=== PATIENT | male | born 1960 | race Caucasian/White ===

== ENCOUNTER → 2017-10-20 07:55 | Outpatient (CLI) | payer BC, SELFPAY ==
[2017-10-20 08:38] LABS: AST(SGOT) 25 U/L (15-37); Alanine Aminotransfer ALT/SGPT 31 U/L (16-61); Albumin, Serum 3.7 g/dL (3.2-5.0); Alkaline Phosphatase 56 U/L (45-117); Bilirubin, Direct 0.13 mg/dL (0.00-0.30); Cholesterol 209 mg/dL (200); Globulin 3.5 g/dL (2.2-4.2); High Density Lipoprotein 62 mg/dL; Protein, Total 7.2 g/dL (6.4-8.2); Triglycerides 144 mg/dL; Very Low Density Lipoprotein 29 mg/dL (5-40)
== END ==
PROVIDERS: Family Provider Family Medicine; PCP Family Medicine; Visit Provider Internal Medicine Cardiovascular Disease
DX: E78.5 Hyperlipidemia, unspecified (principal); Z79.899 Other long term (current) drug therapy
CPT/HCPCS: 36415; 80061; 80076

== ENCOUNTER → 2018-04-27 08:53 | Outpatient (CLI) | payer BC, SELFPAY ==
[2018-04-27 11:19] LABS: Albumin, Serum 3.7 g/dL (3.2-5.0)
[2018-04-27 11:20] LABS: AST(SGOT) 17 U/L (15-37); Alanine Aminotransfer ALT/SGPT 24 U/L (16-61); Alkaline Phosphatase 48 U/L (45-117); Bilirubin, Direct 0.14 mg/dL (0.00-0.30); Cholesterol 201 mg/dL (200); Globulin 3.3 g/dL (2.2-4.2); High Density Lipoprotein 53 mg/dL; Triglycerides 87 mg/dL; Very Low Density Lipoprotein 17 mg/dL (5-40)
== END ==
PROVIDERS: Family Provider Family Medicine; PCP Family Medicine; Referring Provider Internal Medicine Cardiovascular Disease; Visit Provider Internal Medicine Cardiovascular Disease
DX: E78.5 Hyperlipidemia, unspecified (principal)
CPT/HCPCS: 36415; 80061; 80076

== ENCOUNTER → 2018-10-26 07:46 | Outpatient (CLI) | payer BC, SELFPAY ==
[2018-04-28 14:02] VITALS: BMI 22.8
[2018-10-26 08:59] LABS: AST(SGOT) 18 U/L (15-37); Alanine Aminotransfer ALT/SGPT 20 U/L (16-61); Albumin, Serum 3.8 g/dL (3.2-5.0); Alkaline Phosphatase 56 U/L (45-117); Cholesterol 195 mg/dL (200); Globulin 3.4 g/dL (2.2-4.2); High Density Lipoprotein 48 mg/dL; Protein, Total 7.2 g/dL (6.4-8.2); Triglycerides 120 mg/dL; Very Low Density Lipoprotein 24 mg/dL (5-40)
== END ==
PROVIDERS: Family Provider Family Medicine; PCP Family Medicine; Referring Provider Internal Medicine Cardiovascular Disease; Visit Provider Internal Medicine Cardiovascular Disease
DX: E78.5 Hyperlipidemia, unspecified (principal)
CPT/HCPCS: 36415; 80061; 80076

== ENCOUNTER 2018-11-10 12:54 | Emergency (ER) | payer BC, SELFPAY ==
[2018-10-27 11:20] VITALS: BMI 23.1
[2018-11-10 12:54] VITALS: BP 152/97; PULSE 93; RESP 16; TEMP 36.8; O2SAT 95; BMI 22.6
--- NOTE | 2018-11-10 13:22 | CT_ITS ---
STUDY: CT ABDOMEN AND PELVIS WITHOUT CONTRAST REASON FOR EXAM: Male, 58 years old. One day history of diffuse abdominal pain. RADIATION DOSAGE (If Supplied By Facility): CTDIvol = ( 10.72 ) mGy, DLP = ( 547.16 ) mGycm TECHNIQUE: Transaxial images were obtained from the dome of the diaphragm to the symphysis pubis without oral contrast, and without intravenous contrast. Sagittal and coronal images were reconstructed. Individualized dose optimization techniques were used for this CT. COMPARISON: Comparison is made with prior study dated February 11, 2012. FINDINGS: The visualized lung bases are unremarkable. Coronary artery calcification. Prior CABG. Normal liver. Normal gallbladder and extrahepatic biliary system. Normal spleen. Normal pancreas. Normal bilateral adrenal glands. Normal right kidney. Normal left kidney. Normal visualized stomach. Normal small intestine. Normal colon. The appendix is visualized and appears normal. And measures 8 mm. Gas is seen within the appendix. There is scattered atherosclerotic calcification of the abdominal aorta, without a demonstrated aneurysm. Normal inferior vena cava. There is borderline retroperitoneal lymphadenopathy with enlarged nodes no greater than 10mm in the short axis diameter. Normal urinary bladder. There is enlargement of the prostate gland. It measures 4 cm x 4.6 cm. There is a small umbilical hernia containing fat. Mild loss of height of the superior endplate of the L4 vertebrae. CT/Abdomen/Pelvis without Cont IMPRESSION: No acute abnormality is seen. Electronically Signed: Rafal Bridges, at 14:25 EDT , Service support ,
--- NOTE | 2018-11-10 13:23 | EKG12_ITS ---
Test Reason : ABD PAIN Blood Pressure : / mmHG Vent. Rate : 066 BPM Atrial Rate : 066 BPM P-R Int : 144 ms QRS Dur : 088 ms QT Int : 396 ms P-R-T Axes : 054 049 070 degrees QTc Int : 415 ms Normal sinus rhythm Normal ECG Confirmed by SHARMAINE JAFFE, LILLIANA ([id number]), school photograph editor SANYA BARONE ([id number]) on 11/15/2018 1:01:33 PM Referred By: ES Confirmed By:LILLIANA SCHMID MD
[2018-11-10 13:54] LABS: Absolute Lymphocyte Count 1.81 X10^3/ul (0.83-4.51); Absolute Neutrophil Count 8.7 X10^3/uL (2.0-7.7); Basophil# 0.03 X10^3/uL; Basophil% 0.3 % (0-1); Eosinophil# 0.08 X10^3/uL; Eosinophils% 0.7 % (0-5); Hematocrit 49.6 % (40-54); Hemoglobin 17.4 g/dl (13.0-16.5); Lymphocyte # 1.81 X10^3/ul (4.0); Lymphocyte % 16.2 % (19-41); Mean Corp Hgb Conc 35.1 g/gl (32-36); Mean Corpuscular Hgb 30.6 pg (27.0-32.0); Mean Corpuscular Volume 87.3 fL (80-94); Mean Platelet Vol. 10.7 fl (6.2-12.0); Monocyte# 0.57 X10^3/uL; Monocyte% 5.1 % (0-10); Neutrophil # 8.68 X10^3/uL (2.7-7.7); Neutrophil % 77.5 % (47-70); POSITIVE COUNT NO; POSITIVE DIFFERENTIAL NO; POSITIVE MORPHOLOGY NO; Platelet Count 236 K/mm3 (150-450); RBC Distribution Width SD 38.3 fl (35.1-43.9); Red Blood Count 5.68 M/mm3 (4.6-6.2); White Blood Count 11.2 K/mm3 (4.4-11.0)
[2018-11-10 14:16] LABS: BUN 12 mg/dL (7-18); Creatinine, Serum 0.97 mg/dL (0.70-1.30); EST Glomerular Filtration Rate 84 mL/min (>60); Estimated Creatinine Clearance 87.85 ml/min; Glucose 101 mg/dL (74-106)
[2018-11-10 14:17] LABS: AST(SGOT) 20 U/L (15-37); Alanine Aminotransfer ALT/SGPT 25 U/L (16-61); Albumin, Serum 3.8 g/dL (3.2-5.0); Alkaline Phosphatase 63 U/L (45-117); Anion Gap 10 (5-15); BUN/Creat Ratio 12.4 RATIO (10-20); Chloride 102 mmol/L (98-107); Est Glom Filt Rate - Afr Amer 102 mL/min (>60); Globulin 3.8 g/dL (2.2-4.2); Lipase 83 U/L (73-393); Potassium 3.7 mmol/L (3.5-5.1); Protein, Total 7.6 g/dL (6.4-8.2); Sodium Level 139 mmol/L (136-145)
--- NOTE | 2018-11-10 14:22 | ED.VISSUMM ---
- ER Visit Summary Date of Service: 11/10/18 Chief Complaint: Abdominal pain History of Present Illness: The patient is a 58 M who presents with abdominal pain that began yesterday. Patient states he was started on amlodipine yesterday for his blood pressure. Patient states his pain began approximately 3 hours after taking the amlodipine. Patient states the pain is diffuse across his abdomen. Patient states the pain radiates into his back and up into his chest. Patient states the pain in his chest feels different than his pain from his coronary artery disease. Patient is not concerned that this is from coronary artery disease. Patient denies any nausea or vomiting. Patient denies any melena or hematochezia. Patient denies any dysuria or hematuria. Physical Examination: Vital signs are stable. Patient is afebrile. Patient is in no acute distress. Oral mucosa is pink and moist. Neck is supple. Trachea is midline. There is no JVD noted. Heart was regular rate and rhythm. Lungs are clear and equal bilateral. Abdomen is soft. Bowel sounds are normal. There is mild diffuse tenderness. There is no guarding noted. Skin is warm dry. Cranial nerves II through XII are intact. There are no focal motor or sensory deficits noted. The remaining physical exam is within normal limits. Test Results: CBC shows slight leukocytosis of 11.2. Comprehensive metabolic profile and urinalysis were normal. Troponin was normal. CT scan of the abdomen pelvis was obtained and was normal. Emergency Department Course and Treatment: Patient was advised of his lab and x-ray results. Case was discussed with Dr. Jackson who prescribed his amlodipine for him. He will follow-up with the patient as an outpatient. Patient understood and was agreeable with the plan. All questions were answered. Disposition: Discharge home Impression: Abdominal pain This note was generated with [employer] dictation software. It may contain incorrect words, spelling, and punctuation that were not noted in review of the chart prior to signing ED Disposition - Plan for ED Patient: Disposition: Home or Assisted Living Diagnosis: Abdominal pain Instructions: ED Abdominal Pain Unkn Cause Referrals: Angel Barros MD [Primary Care Provider] - Blake Jackson MD [STAFF PHYSICIAN] - 3-5 Days
[2018-11-10 14:26] LABS: Bacteria 0 SEEN /hpf (None Seen); Mucous, Urine 0 SEEN /hpf (<or=2+); Squamous Epithelial Cells - UA 0 SEEN /hpf (0-5); White Blood Cells 0 SEEN /hpf (0-5)
--- NOTE | 2018-11-10 14:27 | ED.DCSUM_ITS ---
- ER Visit Summary Date of Service: 11/10/18 Chief Complaint: Abdominal pain History of Present Illness: The patient is a 58 M who presents with abdominal pain that began yesterday. Patient states he was started on amlodipine yesterday for his blood pressure. Patient states his pain began approximately 3 hours after taking the amlodipine. Patient states the pain is diffuse across his abdomen. Patient states the pain radiates into his back and up into his chest. Patient states the pain in his chest feels different than his pain from his coronary artery disease. Patient is not concerned that this is from coronary artery disease. Patient denies any nausea or vomiting. Patient denies any melena or hematochezia. Patient denies any dysuria or hematuria. Physical Examination: Vital signs are stable. Patient is afebrile. Patient is in no acute distress. Oral mucosa is pink and moist. Neck is supple. Trachea is midline. There is no JVD noted. Heart was regular rate and rhythm. Lungs are clear and equal bilateral. Abdomen is soft. Bowel sounds are normal. Ther e is mild diffuse tenderness. There is no guarding noted. Skin is warm dry. Cranial nerves II through XII are intact. There are no focal motor or sensory deficits noted. The remaining physical exam is within normal limits. Test Results: CBC shows slight leukocytosis of 11.2. Comprehensive metabolic profile and urinalysis were normal. Troponin was normal. CT scan of the abdomen pelvis was obtained and was normal. Emergency Department Course and Treatment: Patient was advised of his lab and x- ray results. Case was discussed with Dr. Jackson who prescribed his amlodipine for him. He will follow-up with the patient as an outpatient. Patient understood and was agreeable with the plan. All questions were answered. Disposition: Discharge home Impression: Abdominal pain This note was generated with [employer] dictation software. It may contain incorrect words, spelling, and punctuation that were not noted in review of the chart prior to signing ED Disposition - Plan for ED Patient: Disposition: Home or Assisted Living Diagnosis: Abdominal pain Instructions: ED Abdominal Pain Unkn Cause Referrals: Angel Barros MD [Primary Care Provider] - Blake Jackson MD [STAFF PHYSICIAN] - 3-5 Days
[2018-11-10 14:32] LABS: Color, Urine Yellow (Yellow); Glucose, Dipstick Normal (Normal); Ketone-Dipstick Negative (Negative); Leukocyte Esterase-Dipstick Negative /ul (Negative); Nitrite-Dipstick Negative (Negative); Occult Blood-Urine 25 /ul (Negative); Protein-Dipstick Negative (Negative); Specific Gravity, Urine 1.015 (1.002-1.030); Urine Bilirubin Dipstick Negative (Negative); Urine Clarity Clear (Clear); Urine Urobilinogen Normal (Normal); Urine pH 6.5 (5.0 - 8.0)
[2018-11-10 14:38] LABS: Red Blood Cells-Urine 0-5 SEEN /hpf (0-5)
[2018-11-10 15:29] VITALS: BP 172/104; PULSE 62; RESP 16; O2SAT 97
--- NOTE | 2018-11-10 15:33 | ED.RN ---
DR DAHL AWARE OF HTN. NNO.
== END 2018-11-10 15:37 | disposition home or self-care (01) ==
PROVIDERS: Emergency Provider Emergency Medicine; Family Provider Family Medicine; PCP Family Medicine
DX: R10.84 Generalized abdominal pain (principal); I25.10 Atherosclerotic heart disease of native coronary artery without angina pectoris; I10 Essential (primary) hypertension; Z79.82 Long term (current) use of aspirin; Z79.899 Other long term (current) drug therapy
CPT/HCPCS: 74176; 80053; 81001; 83690; 84484; 85025; 93005; 99283; A4216

== ENCOUNTER → 2018-11-29 | Outpatient (CLI) | payer BC, SELFPAY ==
[2018-11-10 12:54] VITALS: BMI 22.6
[2018-11-29 15:08] LABS: PSA,Total - Annual Screen 3.19 ng/mL (0.00-4.00)
== END | disposition home or self-care (01) ==
LOC: LAB.FUTURE 14:35
PROVIDERS: Family Provider Family Medicine; PCP Family Medicine; Referring Provider Nurse Practitioner Adult Health; Visit Provider Nurse Practitioner Adult Health
DX: Z12.5 Encounter for screening for malignant neoplasm of prostate (principal)
CPT/HCPCS: 36415; 84153; G0103

== ENCOUNTER → 2019-05-18 08:51 | Outpatient (CLI) | payer BC, SELFPAY ==
[2019-05-18 11:11] LABS: AST(SGOT) 14 U/L (15-37); Alanine Aminotransfer ALT/SGPT 16 U/L (16-61); Albumin, Serum 3.7 g/dL (3.2-5.0); Alkaline Phosphatase 51 U/L (45-117); Bilirubin, Direct 0.15 mg/dL (0.00-0.30); Cholesterol 197 mg/dL (200); Globulin 3.2 g/dL (2.2-4.2); High Density Lipoprotein 56 mg/dL; Protein, Total 6.9 g/dL (6.4-8.2); Triglycerides 106 mg/dL; Very Low Density Lipoprotein 21 mg/dL (5-40)
== END ==
PROVIDERS: Family Provider Family Medicine; PCP Family Medicine; Referring Provider Internal Medicine Cardiovascular Disease; Visit Provider Internal Medicine Cardiovascular Disease
DX: E78.5 Hyperlipidemia, unspecified (principal)
CPT/HCPCS: 36415; 80061; 80076

== ENCOUNTER → 2019-11-23 | Outpatient (CLI) | payer OTHER, SELFPAY ==
[2019-05-18 14:52] VITALS: BMI 23.0
[2019-11-23 09:40] LABS: Cholesterol 224 mg/dL (200); High Density Lipoprotein 54 mg/dL; PSA,Total - Annual Screen 3.32 ng/mL (0.00-4.00); Triglycerides 109 mg/dL; Very Low Density Lipoprotein 22 mg/dL (5-40)
== END | disposition home or self-care (01) ==
LOC: LAB.FUTURE 08:44 → LAB 08:46
PROVIDERS: PCP Family Medicine; Referring Provider Internal Medicine Cardiovascular Disease; Visit Provider Urology
DX: E78.00 Pure hypercholesterolemia, unspecified (principal); Z12.5 Encounter for screening for malignant neoplasm of prostate
CPT/HCPCS: 80061; 84153; G0103

== ENCOUNTER → 2020-08-22 07:56 | Outpatient (CLI) | payer OTHER, SELFPAY ==
[2019-11-23 13:00] VITALS: BMI 22.8
[2020-08-22 09:08] LABS: AST(SGOT) 21 U/L (15-37); Alanine Aminotransfer ALT/SGPT 25 U/L (16-61); Albumin, Serum 3.8 g/dL (3.2-5.0); Alkaline Phosphatase 55 U/L (45-117); Bilirubin, Direct 0.18 mg/dL (0.00-0.30); Cholesterol 201 mg/dL (200); Globulin 3.3 g/dL (2.2-4.2); High Density Lipoprotein 61 mg/dL; Protein, Total 7.1 g/dL (6.4-8.2); Triglycerides 123 mg/dL; Very Low Density Lipoprotein 25 mg/dL (5-40)
== END ==
PROVIDERS: PCP Family Medicine; Referring Provider Nurse Practitioner Family; Visit Provider Nurse Practitioner Family
DX: E78.5 Hyperlipidemia, unspecified (principal)
CPT/HCPCS: 36415; 80061; 80076

== ENCOUNTER → 2021-02-21 09:36 | Outpatient (CLI) | payer OTHER, SELFPAY ==
[2021-02-21 10:43] LABS: AST(SGOT) 17 U/L (15-37); Alanine Aminotransfer ALT/SGPT 29 U/L (16-61); Albumin, Serum 3.6 g/dL (3.2-5.0); Alkaline Phosphatase 64 U/L (45-117); Anion Gap 6 (5-15); BUN 14 mg/dL (7-18); BUN/Creat Ratio 16.1 RATIO (10-20); Bilirubin, Direct 0.18 mg/dL (0.00-0.30); Calcium,Total 8.6 mg/dL (8.5-10.1); Chloride 106 mmol/L (98-107); Cholesterol 228 mg/dL (200); Creatinine, Serum 0.87 mg/dL (0.70-1.30); EST Glomerular Filtration Rate 95 mL/min (>60); Est Glom Filt Rate - Afr Amer 115 mL/min (>60); Globulin 3.5 g/dL (2.2-4.2); Glucose 98 mg/dL (74-106); High Density Lipoprotein 70 mg/dL; Protein, Total 7.1 g/dL (6.4-8.2); Sodium Level 138 mmol/L (136-145); Triglycerides 67 mg/dL; Very Low Density Lipoprotein 13 mg/dL (5-40)
== END ==
PROVIDERS: PCP Family Medicine; Referring Provider Internal Medicine Cardiovascular Disease; Visit Provider Internal Medicine Cardiovascular Disease
DX: E78.5 Hyperlipidemia, unspecified (principal); I25.810 Atherosclerosis of coronary artery bypass graft(s) without angina pectoris; R00.2 Palpitations; Z95.1 Presence of aortocoronary bypass graft; Z95.5 Presence of coronary angioplasty implant and graft
CPT/HCPCS: 36415; 80048; 80061; 80076

== ENCOUNTER 2021-08-29 08:50 | Outpatient (CLI) | payer OTHER, SELFPAY ==
[2021-08-29 09:54] LABS: Cholesterol 253 mg/dL (200); High Density Lipoprotein 63 mg/dL; Triglycerides 91 mg/dL; Very Low Density Lipoprotein 18 mg/dL (5-40)
== END 2021-08-29 23:59 | disposition home or self-care (01) ==
LOC: LAB 08:52
PROVIDERS: PCP Family Medicine; Visit Provider Internal Medicine Cardiovascular Disease
DX: E78.00 Pure hypercholesterolemia, unspecified (principal)
CPT/HCPCS: 36415; 80061

== ENCOUNTER → 2023-10-22 | Outpatient (CLI) | payer OTHER, SELFPAY ==
[2023-10-22 08:32] LABS: Absolute Lymphocyte Count 1.75 X10^3/uL (0.83-4.51); Absolute Neutrophil Count 4.2 X10^3/uL (2.0-7.7); Basophil# 0.08 X10^3/uL; Basophil% 1.2 % (0-1); Hematocrit 50.7 % (40-54); Hemoglobin 16.9 g/dL (13.0-16.5); Lymphocyte # 1.75 X10^3/ul (0.83-4.51); Lymphocyte % 26.2 % (19-41); Mean Corp Hgb Conc 33.3 g/dL (32-36); Mean Corpuscular Hgb 30.8 pg (27.0-32.0); Mean Corpuscular Volume 92.5 fL (80-94); Monocyte# 0.47 X10^3/uL; NRBC Flagged by Analyzer 0 % (0-5); Neutrophil # 4.15 X10^3/uL (2.7-7.7); Neutrophil % 62.3 % (47-70); Platelet Count 230 K/mm3 (150-450); RBC Distribution Width CV 11.9 % (11.6-14.6); RBC Distribution Width SD 40.5 fl (35.1-43.9); Red Blood Count 5.48 M/mm3 (4.6-6.2); White Blood Count 6.7 K/mm3 (4.4-11.0)
[2023-10-22 09:24] LABS: ALB/GLOB Ratio 1.1 RATIO (0.9-2.4); AST(SGOT) 19 U/L (15-37); Alanine Aminotransfer ALT/SGPT 19 U/L (16-61); Albumin, Serum 3.7 g/dL (3.2-5.0); Alkaline Phosphatase 45 U/L (45-117); Anion Gap 4 (5-15); BUN 18 mg/dL (7-18); BUN/Creat Ratio 18.2 RATIO (10-20); Chloride 107 mmol/L (98-107); Cholesterol 243 mg/dL (200); Creatinine, Serum 0.99 mg/dL (0.70-1.30); EST Glomerular Filtration Rate 81 mL/min (>60); Est Glom Filt Rate - Afr Amer 98 mL/min (>60); Globulin 3.4 g/dL (2.2-4.2); Glucose 97 mg/dL (74-106); High Density Lipoprotein 51 mg/dL; Potassium 4.3 mmol/L (3.5-5.1); Protein, Total 7.1 g/dL (6.4-8.2); Sodium Level 138 mmol/L (136-145); Triglycerides 92 mg/dL; Very Low Density Lipoprotein 18 mg/dL (5-40)
== END | disposition home or self-care (01) ==
LOC: LAB 08:17
PROVIDERS: PCP Family Medicine; Referring Provider Internal Medicine Cardiovascular Disease; Visit Provider Internal Medicine Cardiovascular Disease
DX: E78.5 Hyperlipidemia, unspecified (principal); I25.810 Atherosclerosis of coronary artery bypass graft(s) without angina pectoris; I10 Essential (primary) hypertension; R00.2 Palpitations; Z95.1 Presence of aortocoronary bypass graft; Z95.5 Presence of coronary angioplasty implant and graft
CPT/HCPCS: 36415; 80053; 80061; 85025

== ENCOUNTER → 2025-03-01 | Outpatient (CLI) | payer MEDICARE, OTHER, SELFPAY ==
--- OUTSIDE RECORDS SUMMARY | 2025-03-01 06:38 | XMS RPT_ITS | CCD ---
Author Organization [facility] Care Team Providers Care Development Technical Lead Name Role Phone Blake Jackson MD Unavailable JEFFREY VILLA Attending Unavailable JEFFREY VILLA Primary Care Unavailable JEFFREY VILLA Admitting Unavailable Dr. Angel Strong Primary Care Provider Dr. Angel Strong Referring Provider Dr. Blake Jackson Attending Provider [phone] Fiorella JAFFE, Jackie Ascencio Primary Care Provider Jackie Strong MD Primary Care Provider Marily PART TIME.CASINO FLOOR SUPERVISOR, Sindhu Unavailable Fiorella JAFFE, Dr. Ortiz Primary Care Provider [phone] Fiorella JAFFE, Dr. Ortiz Referring Provider Warren JAFFE, Dr. Kearney Attending Provider JACKIE STRONG Attending Unavailable JACKIE STRONG Primary Care Unavailable JACKIE STRONG Referring Unavailable JACKIE STRONG Primary Care Unavailable Caio Kelley Attending Unavailable Angel Strong Referring Unavailable Angel Strong Primary Care Unavailable [employer], Dru Tubbs Attending Unavailable Angel Strong Referring Unavailable Angel Strong Primary Care Unavailable Caio Kelley Referring Unavailable Caio Kelley Attending Unavailable Angel Strong Primary Care Unavailable Allergies Allergy Classification Reported Allergen(s) Allergy Type Date of Onset Reaction(s) Facility (16 sources) amoxicillin; Translations: [AMOXICILLIN] Drug Allergy 5 tongue blisters, Unknown [facility] Work Phone: (2 sources) penicillin Drug Allergy 1 bumps on tongue [facility] Work Phone: (2 sources) amLODIPine Drug Allergy 2 stomach pain [facility] (2 sources) Losartan Drug Allergy 2 respiratory symptoms, Nasal congestion, GI symptoms [facility] (2 sources) Penicillin V Drug Allergy 2 unknown [facility] (12 sources) pantoprazole; Translations: [PANTOPRAZOLE SODIUM] Drug Allergy 2 Intolerance [facility] (1 source) Lisinopril Drug Allergy 5 Intestinal issues,cramps, gas [facility] (1 source) amLODIPine Drug Allergy 5 [facility] (1 source) Lisinopril Drug Allergy 5 [facility] (1 source) Losartan Drug Allergy 5 [facility] (1 source) Penicillin Drug Allergy 5 [facility] Medications Current Medications Medication Drug Class(es) Dates Sig (Normalized) Sig (Original) aspirin 81 mg chewable tablet (17 sources) Nonsteroidal Anti-inflammatory Drug Start: 11-20-2015 take 81 mg by mouth once daily Aspirin Active 81 MG PO DAILY@0800 November 20, 2015 12:48pm Start: 06-23-2011 take 1 tablet by benigno th once daily ASPIRIN EC 81 MG TBEC One tablet by mouth daily ASPIRIN [id number] Raquel Crawford RN Start: 12-30-2010 take 1 tablet by benigno th once daily Aspirin 81 mg ORAL Tab Take 1 tablet by mouth once daily. 30 tablet 11 12/30/2010 Active Start: 12-24-2010 take 1 tablet by benigno th once daily ASPIRIN 325 MG TABS One tablet by mouth daily ASPIRIN [id number] Gilda Johns Comment on above: Take 1 tablet by benigno th once daily. chlorthalidone 25 mg oral tablet (4 sources) Thiazide-like Diuretic Start: 025 take 1 tablet by mouth once daily Chlorthalidone 25 mg tablet Active 25 mg PO daily 30 0 February 06, 2025 12:00am hydroCHLOROthiazide 12.5 mg oral capsule (7 sources) Thiazide Diuretic Start: 022 End: take 12.5 mg by mouth once daily Hydrochlorothiazide Active 12.5 MG PO DAILY August 29, 2021 1:55pm Start: 08-22-2020 End: 2022 hydroCHLOROthiazide (HYDRODI URIL, ESIDRIX) 12.5 mg tablet Take by mouth. 0 08/22/2020 2022 Discontinued Start: 08-22-2020 End: 02-21-2021 take 0.5 tablet by mouth once daily Hydrochlorothiazide Discontinued 12.5 MG PO DAILY August 22, 2020 5:33pm February 21, 2021 4:00pm 1/2 tablet by mouth daily Comment on above: Take by mouth. lisinopril 10 mg oral tablet (20 sources) Angiotensin Converting Enzyme Inhibitor Start: 02-06-2025 take 5 mg by mouth twice daily Lisinopril 10 mg tablet Active 5 mg PO TWICE A DAY February 06, 2025 2:23pm Start: 12-27-2024 End: 02-06-2025 take 1 tablet by mouth twice daily Lisinopril 10 mg tablet Discontinued 10 mg PO TWICE A DAY 60 December 27, 2024 12:00am February 06, 2025 2:24pm Start: 04-20-2024 End: 04-20-2024 take 5 mg by mouth twice daily Lisinopril 10 mg tablet Discontinued 5 mg PO TWICE A DAY April 20, 2024 2:09pm April 20, 2024 2:28pm Start: 04-13-2024 take 1 tablet by benigno th every twelve hours lisinopril (ZESTRIL) 10 mg tablet Take 1 tablet by mouth every 12 hours. 04/13/2024 Active Start: 01-18-2024 End: 04-20-2024 take 1 tablet by mouth once daily Lisinopril 10 mg tablet Discontinued 10 mg PO daily January 18, 2024 1:11pm April 20, 2024 2:10pm Start: 06-03-2023 End: 01-18-2024 take 1 tablet by mouth twice daily Lisinopril 10 mg tablet Discontinued 10 mg PO TWICE A DAY 60 June 03, 2023 1:00am January 18, 2024 1:12pm Start: 08-29-2021 take 5 mg by mouth once daily Lisinopril Active 5 MG PO DAILY August 29, 2021 1:32pm Start: 08-29-2021 End: 01-15-2023 take 5 mg by mouth once daily as needed Lisinopril 10 mg tablet Discontinued 5 mg PO DAILY as needed August 29, 2021 12:00am January 15, 2023 2:30pm Start: 11-23-2019 End: 07-10-2020 take 5 mg by mouth once daily Lisinopril Discontinued 5 MG PO DAILY 45 November 23, 2019 1:13pm July 10, 2020 2:25pm Start: 11-23-2019 End: 11-23-2019 take 5 mg by mouth once daily Lisinopril Discontinued 5 MG PO DAILY November 23, 2019 1:01pm November 23, 2019 1:13pm Start: 11-23-2019 End: 07-10-2020 take 5 mg by mouth once daily Lisinopril 10 mg tablet Discontinued 5 mg PO DAILY 45 3 November 23, 2019 12:00am July 10, 2020 2:25pm Start: 11-15-2018 End: 2022 take 1 tablet by mouth once daily Lisinopril 10 mg tablet Discontinued 10 mg PO DAILY 30 March 21, 2019 1:11pm May 18, 2019 4:14pm Comment on above: Take 10 mg by mouth once daily. nitroglycerin 0.4 mg sublingual tablet (20 sources) Nitrate Vasodilator Start: 11-18-19 End: 06-03-20 nitroglycerin sublingual 0.4 mg SL tablet Dissolve 1 tablet under the tongue every 5 minutes as needed. 2 Bottle of 25 4 02/29/2012 Active Comment on above: Dissolve 1 tablet un dorina the tongue every 5 minutes as needed. rosuvastatin calcium 5 mg oral tablet (20 sources) HMG-CoA Reductase Inhibitor Start: 10-23-19 24 End: 01-18-20 24 take 1 tablet by mouth once daily Rosuvastatin 5 mg tablet Active 5 mg PO DAILY January 18, 2024 1:11pm Has not started Start: 10-27-2018 End: 05-18-2019 take 1 tablet by mouth every other day Rosuvastatin (Crestor) 5 mg tablet Discontinued 5 MG PO .qod October 27, 2018 11:57am May 18, 2019 3:53pm Start: 10-26-2017 End: 01-15-2023 take 1 tablet by mouth once daily Rosuvastatin (Crestor) 5 mg tablet Discontinued 5 mg PO DAILY 14 05September 20, 2021 9:38am May 21, 2022 2:46pm Start: 10-13-2017 End: 10-21-2017 take 2.5 mg by mouth once daily Rosuvastatin (Crestor) 5 mg tablet Discontinued 2.5 MG PO daily October 13, 2017 1:11pm October 21, 2017 2:19pm Start: 11-29-2015 End: 06-29-2017 take 1 tablet by mouth at bedtime Rosuvastatin 5 MG tablet Discontinued 5 mg PO AT BEDTIME December 10, 2015 12:00am June 29, 2017 3:50pm Start: 12-10-2012 End: 04-13-2013 take 1 tablet by mouth once daily CRESTOR 5 MG TABS One tablet by mouth daily ROSUVASTATIN CALCIUM [id number] Blake Jackson MD Comment on above: Take 1 tablet by benigno th once daily. sildenafil 20 mg oral tablet (12 sources) Phosphodiesterase 5 Inhibitor Start: 03-10-2019 End: 2022 sildenafil (REVATIO) 20 mg tablet Indications: ED (erectile dysfunction) of organic origin Take 1-5 tablets by mouth 45-60 mg prior to anticipated intercourse. 90 tablet 2022 Active Comment on above: Take 1-5 tablets by mouth 45-60 mg prior to anticipated intercourse. Completed/Discontinued Medications Medication Drug Class(es) Dates Sig (Normalized) Sig (Original) amLODIPine 2.5 mg oral tablet (6 sources) Dihydropyridine Calcium Channel Sonia Start: 11-09-2018 End: 11-15-2018 take 1 tablet by mouth once daily Amlodipine 2.5 mg tablet Discontinued 2.5 mg PO DAILY 14 05November 09, 2018 2:41pm November 15, 2018 4:16pm Start: 10-21-2017 End: 10-27-2018 Amlodipine Discontinued 2.5 MG PO .PRN October 21, 2017 2:51pm October 27, 2018 11:52am atorvastatin 40 mg oral tablet (2 sources) HMG-CoA Reductase Inhibitor Start: 01-24-2011 End: 05-16-2011 take 1 tablet by mouth once daily LIPITOR 40 MG TABS One tablet by mouth daily ATORVASTATIN CALCIUM [id number] Liz Pitts RN carvedilol 3.125 mg oral tablet (2 sources) alpha-Adrenergic Sonia, beta-Adrenergic Sonia Start: 10-21-2023 End: 01-18-2024 take 2 tablets by mouth twice daily at mealtime Carvedilol (Coreg) 3.125 mg tablet Discontinued 6.25 mg PO TWICE A DAY 30 October 21, 2023 3:53pm January 18, 2024 1:09pm must administer with a meal/food Start: 10-16-2023 End: 10-21-2023 take 1 tablet by mouth twice daily at mealtime Carvedilol (Coreg) 3.125 mg tablet Discontinued 3.125 mg PO TWICE A DAY 30 October 16, 2023 12:00am October 21, 2023 3:54pm must administer with a meal/food Citric Acid 81892 MG / Magnesium Oxide 3500 MG / picosulfate sodium 10 MG Powder for Oral Solution (1 source) Start: 05-17-2015 End: 05-18-2015 PREPOPIK 10-3.5-12 MG-GM-GM PACK use as per instructions SOD PICOSULFATE-MAG OX-CIT ACD [id number] Lana Arnold clopidogrel 75 mg oral tablet (20 sources) P2Y12 Platelet Inhibitor Start: 12-24-2010 End: 2022 take 1 tablet by mouth once daily Clopidogrel 75 mg tablet Discontinued 75 mg PO DAILY 90 3 November 17, 2020 1:30pm February 14, 2021 4:41pm Comment on above: Take 1 tablet by benigno once daily. furosemide 20 mg oral tablet (2 sources) Loop Diuretic Start: 01-24-2011 End: 06-19-2011 take 1 tablet by mouth once daily LASIX 20 MG TABS One tablet by mouth daily X 2 wks FUROSEMIDE [id number] Gilda Johns gabapentin 300 mg oral capsule (2 sources) Anti-epileptic Agent Start: 04-24-2016 End: 10-29-2016 take 1 capsule by mouth three times daily GABAPENTIN 300 MG CAPS 1 po tid GABAPENTIN [id number] Caio Harrington hydrOXYzine hydrochloride 10 mg oral tablet (3 sources) Antihistamine Start: 01-23-2021 End: 2022 take 1 tablet by mouth once daily at bedtime as needed hydrOXYzine HCl (ATARAX) 10 mg tablet Indications: Rhus dermatitis , Adjustment insomnia TAKE 1 TABLET BY MOUTH EVERY DAY AT BEDTIME NEEDED 30 tablet 0 01/23/2021 2022 Discontinued Comment on above: TAKE 1 TABLET BY BENIGNO TH EVERY DAY AT BEDTIME NEEDED hyoscyamine sulfate 0.125 mg oral tablet (2 sources) Start: 01-16-2016 End: 04-30-2016 take 1 tablet by mouth once daily HYOSCYAMINE SULFATE 0.125 MG TABS One tablet by mouth daily HYOSCYAMINE SULFATE [id number] Blake Jackson MD ISOSORBIDE MONONITRATE (2 sources) Start: 02-18-2012 End: 02-27-2012 take 1 tablet by mouth once daily IMDUR 30 MG [id number] One half tablet by mouth daily ISOSORBIDE MONONITRATE [id number] Aileen Guzman RN Start: 02-18-2012 take 1 tablet by benigno th once daily IMDUR 30 MG [id number] One half tablet by mouth daily ISOSORBIDE MONONITRATE [id number] Aileen Guzman RN losartan potassium 25 mg oral tablet (20 sources) Angiotensin 2 Receptor Sonia Start: 04-20-2024 End: 12-27-2024 take 1 tablet by mouth once daily Losartan 25 mg tablet Discontinued 25 mg PO daily June 03, 2024 1:00am December 27, 2024 6:27pm Start: 01-15-2023 End: 06-03-2023 Losartan 25 mg tablet Discon tinued 12.5 mg PO daily 45 January 15, 2023 3:22pm June 03, 2023 5:30pm Start: 05-21-2022 End: 01-15-2023 take 0.5 tablet by mouth once daily losartan (COZAAR) 25 mg tablet TAKE 1/2 (ONE-HALF) OF A TABLET BY MOUTH EVERY DAY 05/22/2022 Active Start: 10-27-2018 End: 11-09-2018 take 1 tablet by mouth once daily Losartan (Cozaar) 25 mg tablet Discontinued 25 MG PO DAILY October 27, 2018 11:52am November 09, 2018 2:08pm Start: 10-13-2017 End: 10-21-2017 take 12.5 mg by mouth once daily Losartan Discontinued 12.5 MG PO daily October 13, 2017 1:11pm October 21, 2017 2:17pm Start: 10-13-2017 End: 10-21-2017 Losartan 25 mg tablet Discon tinued 12.5 mg PO daily October 13, 2017 12:00am October 21, 2017 2:17pm Start: 12-10-2015 End: 06-29-2017 Losartan Discontinued 12.5 M G PO NEEDED December 10, 2015 9:20am June 29, 2017 3:50pm Start: 12-10-2015 End: 06-29-2017 Losartan 25 MG tablet Discon tinued 12.5 mg PO NEEDED as needed for Heart Rate December 10, 2015 12:00am June 29, 2017 3:50pm Start: 10-31-2015 take 0.5 tablet by m outh once daily as needed COZAAR 25 MG TABS 1/2 tablet by mouth daily PRN - HTN LOSARTAN POTASSIUM [id number] Blake Jackson MD Start: 05-16-2015 End: 04-30-2016 COZAAR 25 MG TABS on hold 20 28/10/17 LOSARTAN POTASSIUM [id number] Morena Miller RN Comment on above: TAKE 1/2 (ONE-HALF) OF A TABLET BY MOUTH EVERY DAY METHYLPREDNISOLONE (2 sources) Corticosteroid Start: 04-24-2016 End: 04-30-2016 MEDROL 4 MG TBPK as directed METHYLPREDNISOLONE [id number] Blake Jackson MD Start: 04-24-2016 MEDROL 4 MG TB PK as directed METHYLPREDNISOLONE [id number] Caio Harrington metoprolol tartrate 25 mg oral tablet (20 sources) beta-Adrenergic Sonia Start: 04-28-2018 End: 11-23-2019 take 6.25 mg by mouth twice daily as needed Metoprolol Tartrate 25 MG tablet Discontinued 6.25 mg PO TWICE A DAY as needed for htn November 10, 2018 1:35pm November 23, 2019 1:01pm Start: 04-28-2018 End: 11-23-2019 take 6.25 mg by mouth twice daily Metoprolol Tartrate Discontinued 6.25 MG PO TWICE A DAY November 10, 2018 1:35pm November 23, 2019 1:01pm Start: 09-11-2017 End: 04-28-2018 take 12.5 mg by mouth twice daily Metoprolol Tartrate Discontinued 12.5 MG PO TWICE A DAY October 21, 2017 2:17pm April 28, 2018 3:04pm Start: 09-11-2017 End: 04-28-2018 Metoprolol Tartrate 25 mg ta blet Discontinued 12.5 mg PO TWICE A DAY as needed October 21, 2017 2:17pm April 28, 2018 3:04pm Start: 11-21-2015 End: 06-29-2017 Metoprolol Succinate 25 MG t ablet Discontinued 12.5 mg PO NEEDED as needed for Heart Rate December 10, 2015 9:24am June 29, 2017 3:50pm Start: 11-20-2015 End: 11-21-2015 take 12.5 mg by mouth twice daily Metoprolol Tartrate Discontinued 12.5 MG PO TWICE A DAY November 20, 2015 12:48pm November 21, 2015 11:30am Start: 11-20-2015 End: 11-21-2015 Metoprolol Tartrate 25 MG ta blet Discontinued 12.5 mg PO TWICE A DAY November 20, 2015 12:00am November 21, 2015 11:30am Start: 03-10-2012 End: 01-16-2016 take 1 tablet by mouth twice daily METOPROLOL TARTRATE 25 MG TABS One half tablet by mouth twice daily METOPROLOL TARTRATE [id number] Blake Jackson MD Start: 03-10-2012 take 1 tablet by benigno th once daily METOPROLOL TARTRATE 25 MG TABS One tablet by mouth daily METOPROLOL TARTRATE [id number] Blake Jackson MD Start: 03-08-2012 End: 06-29-2017 Metoprolol Succinate Discont inued 12.5 MG PO NEEDED December 10, 2015 9:24am June 29, 2017 3:50pm Start: 06-19-2011 take 0.5 tablet by m outh at bedtime METOPROLOL TARTRATE 25 MG TABS 1/2 tablet by mouth at bedtime METOPROLOL TARTRATE [id number] Aileen Guzman RN Start: 01-24-2011 take 0.5 tablet by m out twice daily METOPROLOL TARTRATE 25 MG TABS 1/2 tablet by mouth twice daily METOPROLOL TARTRATE [id number] Blake Jackson MD potassium chloride 20 meq oral tablet (2 sources) Start: 01-24-2011 End: 06-19-2011 take 1 tablet by mouth once daily POTASSIUM CHLORIDE 20 MEQ PACK One tablet by mouth daily X 2 wks POTASSIUM CHLORIDE [id number] Gilda Johns pravastatin sodium 10 mg oral tablet (3 sources) HMG-CoA Reductase Inhibitor Start: 11-25-2011 End: 09-27-2012 take 1 tablet by mouth at bedtime PRAVASTATIN SODIUM 10 MG TABS One tablet by mouth at bedtime. PRAVASTATIN SODIUM [id number] Blake Jackson MD Problems Active Problems Problem Classification Problem Date Documented Date Episodic/Chronic Cardiac and circulatory congenital anomalies (11 sources) Structural disorder of heart; Translations: [Congenital malformation of heart, unspecified] Onset: 02-29-2012 Chronic Cardiac dysrhythmias (14 sources) Palpitations; Translations: [Palpitations] Onset: 11-21-2015 11-21-2015 Episodic Complication of device; implant or graft (6 sources) Arteriosclerosis of coronary artery bypass graft; Translations: [Atherosclerosis of coronary artery bypass graft(s) without angina pectoris] Onset: 01-24-2011 01-24-2011 Chronic Comment on above: PTCA/CONCETTA of the Dist al left CX & Ostial Ramus Intermedius 12/23/10; PTCA to CFX 11/24; PTCA/CONCETTA Prox Ramus 11/26/15 we will address his secondary risk factor factors. Complications of surgical procedures or medical care (1 source) Drug therapy finding; Translations: [Unspecified adverse effect of drug or medicament, initial encounter] 07-07-2024 Episodic Coronary atherosclerosis and other heart disease (16 sources) Coronary arteriosclerosis; Translations: [Atherosclerotic heart disease of jena coronary artery without angina pectoris] Onset: 12-24-2010 12-24-2010 Chronic Disorders of lipid metabolism (20 sources) Hyperlipidemia; Translations: [Hyperlipidemia, unspecified] Onset: 01-24-2011 01-24-2011 Chronic Esophageal disorders (11 sources) Gastroesophageal reflux disease; Translations: [Gastro-esophageal reflux disease without esophagitis] Onset: 01-14-2021 01-14-2021 Chronic Essential hypertension (15 sources) Hypertensive disorder; Translations: [Essential hypertension] Onset: 12-20-2010 12-20-2010 Chronic Nonspecific chest pain (4 sources) Precordial pain; Translations: [Chest pain] Onset: 12-20-2010 Resolved: 10-24-2016 12-20-2010 Episodic Other male genital disorders (2 sources) Secondary erectile dysfunction; Translations: [Male erectile dysfunction, unspecified] Chronic Spondylosis; intervertebral disc disorders; other back problems (11 sources) Degeneration of cervical intervertebral disc; Translations: [Other cervical disc degeneration, mid-cervical region] Onset: 04-24-2016 04-30-2016 Chronic Unclassified (1 source) Placement of stent in coronary artery ; Translations: [Presence of other cardiac implants and grafts] Onset: 12-24-2010 10-24-2016 Unclassified (1 source) Saphenous vein graft replacement of two coronary arteries; Translations: [Presence of aortocoronary bypass graft] Onset: 01-06-2011 10-24-2016 Unclassified (2 sources) Long-term drug therapy; Translations: [Long-term (current) use of other medications] Onset: 08-26-2011 08-26-2011 Unclassified (11 sources) SUMMARY Onset: 02-28-2012 Unclassified (1 source) Resistant hypertension; Translations: [Resistant hypertension] Onset: 2022 Past or Other Problems Problem Classification Problem Date Documented Da te Episodic/Chronic Abdominal pain (20 sources) Right upper quadrant pain; Translations: [Abdominal pain] Onset: 02-28-2012 Resolved: 10-24-2016 10-24-2016 Episodic Coronary atherosclerosis and other heart disease (20 sources) Coronary angioplasty status; Translations: [Presence of aortocoronary bypass graft] Onset: 12-13-2010 12-24-2010 Episodic Comment on above: PTCA/CONCETTA of the Dist al left CX & Ostial Ramus Intermedius 12/23/10; PTCA to CFX 11/24; PTCA/CONCETTA Prox Ramus 11/26/15 Malaise and fatigue (13 sources) Fatigue; Translations: [Asthenia] Onset: 02-28-2012 Resolved: 10-24-2016 04-25-2015 Episodic Other and unspecified benign neoplasm (11 sources) History of polyp of colon; Translations: [Personal history of colonic polyps] Onset: 01-14-2021 01-14-2021 Episodic Other connective tissue disease (1 source) Adhesive capsulitis of shoulder; Translations: [Adhesive capsulitis of unspecified shoulder] Onset: 08-23-2014 08-23-2014 Episodic Other gastrointestinal disorders (7 sources) Irritable bowel syndrome; Translations: [Irritable bowel syndrome without diarrhea] Onset: 10-25-2015 Resolved: 10-25-2015 10-25-2015 Chronic Other gastrointestinal disorders (1 source) Alteration in bowel elimination; Translations: [Change in bowel habit] Onset: 01-14-2021 01-14-2021 Episodic Other gastrointestinal disorders (10 sources) Altered bowel function; Translations: [Change in bowel habit] Onset: 01-14-2021 01-14-2021 Episodic Other gastrointestinal disorders (7 sources) Oropharyngeal dysphagia; Translations: [Dysphagia, oropharyngeal phase] Onset: 10-25-2015 Resolved: 10-25-2015 10-25-2015 Episodic Other nervous system disorders (1 source) Piriformis syndrome; Translations: [Lesion of sciatic nerve, right lower limb] Onset: 04-24-2016 04-30-2016 Episodic Other non-traumatic joint disorders (3 sources) Femoral acetabular impingement; Translations: [Hip pain] Onset: 08-23-2014 04-30-2016 Episodic Pleurisy; pneumothorax; pulmonary collapse (2 sources) Pleural effusion, not elsewhere classified; Translations: [Pleural effusion, not elsewhere classified] Onset: 03-13-2011 Resolved: 10-24-2016 03-13-2011 Episodic Spondylosis; intervertebral disc disorders; other back problems (2 sources) Stiff neck; Translations: [Neck pain] Onset: 04-24-2016 04-30-2016 Episodic Unclassified (16 sources) Encounter for screening for malignant neoplasm of colon; Translations: [Echocardiogram abnormal] Onset: 12-20-2010 Resolved: 10-24-2016 05-17-2015 Episodic Results Test Name Value Interpretation Reference Range Facility [facility] 02-06-2025 [facility] Telephone (FPWADS) CADENABRIE ([id number]) 1960 M Date Time Provider Department 02/06/25 JACKIE STRONG During your visit today, we recorded the following information about you: Rose Starr LPN 02/06/2025 3:29 PM Signed Received 02/06/2025 from [facility]. Placed in provider's inbox for review. Route to DC for scanning. Allergies As of Date: 02/06/2025 Noted Allergy Reaction AMOXICILLIN 05/07/2005 Comments: sores in mouth PROTONIX (PANTOPRAZOLE SODIUM) 03/08/2012 5 - Intolerance Date Reviewed: 07/07/2024 Reviewed by: Lesly Killian LPN - Fully Assessed Reason for Visit: Received Outside Medical Records [[id number]] Cmt: [facility] Visit summary 02/06/2025 hypertension Prescriptions as of 02/06/2025 - rosuvastatin (CRESTOR) 5 mg tablet Take 5 mg by mouth once daily. - lisinopril (ZESTRIL) 10 mg tablet Take 1 tablet by mouth every 12 hours. - chlorthalidone (HYGROTON) 25 mg tablet Take 1 tablet by mouth once daily. - losartan (COZAAR) 25 mg tablet TAKE 1/2 (ONE-HALF) OF A TABLET BY MOUTH EVERY DAY - sildenafil (REVATIO) 20 mg tablet Take 1-5 tablets by mouth 45-60 mg prior to anticipated intercourse. - nitroglycerin sublingual 0.4 mg SL tablet Dissolve 1 tablet under the tongue every 5 minutes as needed. - Aspirin 81 mg ORAL Tab Take 1 tablet by mouth once daily. Problem List As Of Date 02/06/2025 Noted Resolved Pure hypercholesterolemia [E78.00] CAD (coronary artery disease) [I25.10] 12/30/2010 History of heart bypass surgery [Z95.1] 12/30/2010 SUMMARY [V999.95] 02/28/2012 Weakness [R53.1] 02/28/2012 Abdominal pain [R10.9] 02/28/2012 Aortic root Echodensity [Q24.9] 02/29/2012 Abdominal pain, unspecified site [R10.9] 03/08/2012 Encounter for screening for malignant neoplasm *10/25/2015 10/25/2015 Irritable bowel syndrome without diarrhea [K58.*10/25/2015 10/25/2015 Dysphagia, oropharyngeal [R13.12] 10/25/2015 10/25/2015 Left lower quadrant abdominal pain [R10.32] 01/14/2021 Gastroesophageal reflux disease [K21.9] 01/14/2021 Bowel habit changes [R19.4] 01/14/2021 Personal history of colonic polyps [Z86.0100] 01/14/2021 Degeneration of intervertebral disc of cervical*04/24/2016 Hyperlipidemia [E78.5] 01/24/2011 Hypertension [I10] 12/20/2010 Palpitations [R00.2] 11/21/2015 Presence of stent in coronary artery [Z95.5] 11/14/2015 S/P coronary artery stent placement [Z95.5] 02/12/2012 Encounter Status:Closed by ROSE STARR on 02/06/25 Normal [facility] Cardiology Visit Reporton Cardiology Visit Report [facility] [address] [place] [address]. [address] [place] [address] OFFICE VISIT Date of Service: 02/06/25 MR#: [id number] Acct: [id number] Name: BRIE CADENA Rep #: [id number] 1 : 1960 Provider: Dr. Caio mcclain MD Age/Sex: 64/M Location: [facility] [place] Status: Signed HPI HPI History of Present Illness Details: Patient is a pleasant 64-year-old white male that comes in today for monitoring of his hypertension. The patient's had very difficult to control blood pressures due to multiple intolerances he is intolerant of beta-blockers due to bradycardia and fatigue. He has had multiple side effects with amlodipine due to GI issues lisinopril has created GI issues but he is tolerating that taking it on a as needed basis. He has had nasal congestion and GI upset with losartan as well. The patient was totally intolerant of Coreg and reports that when he would take the medication his blood pressure would actually spike into the 200 systolic range. The patient now reports his blood pressures routinely are running in the 125???130 range over 80. This morning at home he was 127/80 he took his lisinopril 10 mg and it actually went up to 134/80 just prior to coming to the office. In the office today his first reading was 167/90 10:06 minutes it was 170/84. The patient does have a history of coronary disease status post remote CABG in 2010 with a staged PCI to the circumflex and ramus branch. He had a BENNETT placed to the LAD which was widely patent at a recatheterization November 2015 and his proximal ramus was stented at that point in time. The patient has a history of hyperlipidemia last lipids from October of last year total cholesterol 243 HDL 51 LDL 174 and triglycerides 92. He has not instituted rosuvastatin due to the fact that we are trying to get his blood pressure control and he is having so many side effects from the antihypertensives. Once we can get his blood pressure alf stabilized would recommend he reinstitute Crestor. He will need to have fasting lipids and liver functions checked 6 weeks after instituting the therapy. Dr. Strong had recommended utilizing a diuretic he thinks it was chlorthalidone he has the medications at home but has not utilized it yet. I agree with trialing this. The patient continues to be very active he is riding his bike he water skis and snow skis he is not quite as active as he was last year as he is remarried and has some new grandchildren. Intake Vital Signs 04/20/24 13:06 02/06/25 14:21 02/06/25 14:38 Height 6 ft 6 ft Weight: 177 lb 176 lb BMI 24.0 23.8 BP 204/96 H 167/96 H 171/84 H Blood Pressure Location Lt brachial Rt brachial Rt brachial Position Sitting Sitting Sitting Respiration 16 18 Pulse 80 89 Pulse Source NIBP Monitor Pulse Oximetry (%) 96 Oxygen Delivery Method room air Intake Visit Reasons: BP ISSUES First Sampler Required: No Accompanied by: Self Is patient in pain?: No Allergies penicillin V Allergy (Mild, Verified 02/06/25 14:22) unknown amoxicillin Allergy (Verified 02/06/25 14:22) Unknown amlodipine (From [facility]) Adverse Reaction (Intermediate, Verified 02/06/25 14:22) stomach pain lisinopril Adverse Reaction (Intermediate, Verified 02/06/25 14:22) Intestinal issues,cramps, gas losartan Adverse Reaction (Intermediate, Verified 02/06/25 14:22) Nasal congestion, GI symptoms Medications ???Medication ???Instructions ???Recorded ???Confirmed ???Type aspirin 81 mg chewable tablet 81 mg PO DAILY@0800 11/20/1502/06 History nitroglycerin 0.4 mg sublingual 0.4 mg sublingual Q5-15M PRN chest 06/03/23 02/06/25 Rx tablet pain #25 tabs rosuvastatin 5 mg tablet 5 mg PO DAILY 01/18/24 04/20/24 Hi story chlorthalidone 25 mg tablet 25 mg PO QDAY #30 tabs 02/06/25 Rx lisinopril 10 mg tablet 5 mg PO BID 02/06/25 History Have you fallen in the past year?: No PFSH Medical History COVID-19 Degenerative joint disease of cervical spine Presence of stent in coronary artery ( 11/26/15) Atherosclerosis of coronary artery bypass graft without angina pectoris HLD (hyperlipidemia) Palpitations Chest pain Surgical History History of colonoscopy (01/14/21) Presence of coronary angioplasty implant and graft ( 11/26/15) Postsurgical percutaneous transluminal coronary angioplasty (PTCA) status Status post patent foramen ovale closure ( 12/20/10) Aortocoronary bypass status ( 12/20/10) BENNETT to LAD, SVG to ramus intermedius and closure of a PFO coronary artery bypass Family History Mother CAD (coronary artery disease) Father Dayanara Caputo dise (more content not included)... Normal [facility] CBC panel Auto (Bld)on 07-08 Erythrocyte distribution width (RBC) [Ratio] 12.3 % Normal 11.5-15.0 [facility] Comment on above: Order Comment: Speci men Type: BLOOD SPECIMEN Ordering Facility: [facility] Address: [address] [place] [address] Performed By: #### 5 8410-2 #### [facility] CLIA [id number] [address] [place] [address] [place] Hematocrit (Bld) [Volume fraction] 47.4 % Normal 39.0-51.0 [facility] Comment on above: Order Comment: Speci men Type: BLOOD SPECIMEN Ordering Facility: [facility] Address: [address] [place] [address] Performed By: #### 5 8410-2 #### [facility] CLIA [id number] [address] [place] [address] [place] Hemoglobin (Bld) [Mass/Vol] 16.3 g/dL Normal 13.0-17.0 [facility] Comment on above: Order Comment: Speci men Type: BLOOD SPECIMEN Ordering Facility: [facility] Address: [address] [place] [address] Performed By: #### 5 8410-2 #### [facility] CLIA [id number] [address] [place] [address] [place] MCH (RBC) [Entitic mass] 31.1 pg Normal 26.0-34.0 [facility] Comment on above: Order Comment: Speci men Type: BLOOD SPECIMEN Ordering Facility: [facility] Address: [address] [place] [address] Performed By: #### 5 8410-2 #### [facility] CLIA [id number] [address] [place] [address] [place] MCHC (RBC) [Mass/Vol] 34.4 g/dL Normal 30.5-36.0 [facility] Comment on above: Order Comment: Speci men Type: BLOOD SPECIMEN Ordering Facility: [facility] Address: [address] [place] [address] Performed By: #### 5 8410-2 #### [facility] CLIA [id number] [address] [place] [address] [place] MCV (RBC) [Entitic vol] 90.5 fL Normal 80.0-100.0 [facility] Comment on above: Order Comment: Speci men Type: BLOOD SPECIMEN Ordering Facility: [facility] Address: [address] [place], [place] [address] Performed By: #### 5 8410-2 #### [facility] CLIA [id number] [address] [place] [address] [place] Nucleated RBC (Bld) [#/Vol] 10*3/uL Normal <0.01 [facility] Comment on above: Order Comment: Speci men Type: BLOOD SPECIMEN Ordering Facility: [facility] Address: [address] [place] [address] Performed By: #### 5 8410-2 #### [facility] CLIA [id number] [address] [place] [address] [place] Platelet mean volume (Bld) [Entitic vol] 10.9 fL Normal 9.0-12.7 [facility] Comment on above: Order Comment: Speci men Type: BLOOD SPECIMEN Ordering Facility: [facility] Address: [address] [place] [address] Performed By: #### 5 8410-2 #### [facility] CLIA [id number] [address] [place] [address] [place] Platelets (Bld) [#/Vol] 246 10*3/uL Normal 150-400 [facility] Comment on above: Order Comment: Speci men Type: BLOOD SPECIMEN Ordering Facility: [facility] Address: [address] [place] [address] Performed By: #### 5 8410-2 #### [facility] CLIA [id number] [address] [place] [address] [place] RBC (Bld) [#/Vol] 5.24 10*6/uL Normal 4.20-6.00 [facility] Comment on above: Order Comment: Speci men Type: BLOOD SPECIMEN Ordering Facility: [facility] Address: [address] [place] [address] Performed By: #### 5 8410-2 #### [facility] CLIA [id number] [address] [place] [address] [place] WBC (Bld) [#/Vol] 7.64 10*3/uL Normal 3.70-11.00 [facility] Comment on above: Order Comment: Speci men Type: BLOOD SPECIMEN Ordering Facility: [facility] Address: [address] [place] [address] Performed By: #### 5 8410-2 #### [facility] CLIA [id number] [address] [place] [address] [place] Comprehensive metabolic 2000 panelon 07-08-2024 Albumin [Mass/Vol] 4.4 g/dL Normal 3.9-4.9 [facility] Comment on above: Order Comment: Speci men Type: BLOOD SPECIMEN Ordering Facility: [facility] Address: [address] [place] [address] Performed By: #### 2 4323-8 #### [facility] CLIA [id number] [address] [place] [address] [place] ALP [Catalytic activity/Vol] 55 U/L Normal 38-113 [facility] Comment on above: Order Comment: Speci men Type: BLOOD SPECIMEN Ordering Facility: [facility] Address: [address] [place] [address] Performed By: #### 2 4323-8 #### [facility] CLIA [id number] [address] [place] [address] [place] ALT [Catalytic activity/Vol] 9 U/L Low 10-54 [facility] Comment on above: Order Comment: Speci men Type: BLOOD SPECIMEN Ordering Facility: [facility] Address: [facility] [place] [address] Performed By: #### 2 4323-8 #### [facility] CLIA [id number] [address] [place] [address] [place] Anion gap [Moles/Vol] 7 mmol/L Low 8-15 [facility] Comment on above: Order Comment: Speci men Type: BLOOD SPECIMEN Ordering Facility: [facility] Address: [address] [place] [address] Performed By: #### 2 4323-8 #### [facility] CLIA [id number] [address] [place] [address] [place] AST [Catalytic activity/Vol] 13 U/L Low 14-40 [facility] Comment on above: Order Comment: Speci men Type: BLOOD SPECIMEN Ordering Facility: [facility] Address: [address] [place] [address] Performed By: #### 2 4323-8 #### [facility] CLIA [id number] [address] [place] [address] [place] Bilirubin [Mass/Vol] 0.7 mg/dL Normal 0.2-1.3 [facility] Comment on above: Order Comment: Speci men Type: BLOOD SPECIMEN Ordering Facility: [facility] Address: [address] [place] [address] Performed By: #### 2 4323-8 #### [facility] CLIA [id number] [address] [place] [address] [place] Calcium [Mass/Vol] 9.3 mg/dL Normal 8.5-10.2 [facility] Comment on above: Order Comment: Speci men Type: BLOOD SPECIMEN Ordering Facility: [facility] Address: [address] [place] [address] Performed By: #### 2 4323-8 #### [facility] CLIA [id number] [address] [place] [address] [place] Chloride [Moles/Vol] 104 mmol/L Normal 98-107 [facility] Comment on above: Order Comment: Speci men Type: BLOOD SPECIMEN Ordering Facility: [facility] Address: [address] [place] [address] Performed By: #### 2 4323-8 #### [facility] CLIA [id number] [address] [place] [address] [place] CO2 [Moles/Vol] 26 mmol/L Normal 22-30 [facility] Comment on above: Order Comment: Speci men Type: BLOOD SPECIMEN Ordering Facility: [facility] Address: [address] [place] [address] Performed By: #### 2 4323-8 #### [facility] CLIA [id number] [address] [place] [address] [place] Creatinine [Mass/Vol] 0.99 mg/dL Normal 0.73-1.22 [facility] Comment on above: Order Comment: Speci men Type: BLOOD SPECIMEN Ordering Facility: [facility] Address: [address] [place] [address] Performed By: #### 2 4323-8 #### [id number] [address] [place] [address] [place] Creatinine and Glomerular filtration rate.predicted panel (S/P/Bld) 85 mL/min/1.73m??? Normal >=60 [facility] Comment on above: Order Comment: Speci men Type: BLOOD SPECIMEN Ordering Facility: [facility] Address: [address] [place] [address] Result Comment: Flor mated Glomerular Filtration Rate (eGFR) is calculated using the 2020 CKD-EPI creatinine equation. This equation utilizes serum creatinine, sex, and age as parameters. The creatinine assay has traceable calibration to isotope dilution-mass spectrometry. Refer to KDIGO guidelines for clinical interpretation. In patients with unstable renal function, e.g. those with acute kidney injury, the eGFR may not accurately reflect actual GFR. Performed By: #### 2 4323-8 #### [facility] [id number] [address] [place] [address] [place] Glucose [Mass/Vol] 94 mg/dL Normal 74-99 [facility] Comment on above: Order Comment: Marlene james Type: BLOOD SPECIMEN Ordering Facility: [facility] Address: [address] [place] [address] Result Comment: The [place] Diabetes Association (ADA) provides guidance for cutoff values for fasting glucose and random glucose. The ADA defines fasting as no caloric intake for at least 8 hours. Fasting plasma glucose results between 100 to 125 mg/dL indicate increased risk for diabetes (prediabetes). Fasting plasma glucose results greater than or equal to 126 mg/dL meet the criteria for diagnosis of diabetes. In the absence of unequivocal hyperglycemia, results should be confirmed by repeat testing. In a patient with classic symptoms of hyperglycemia or hyperglycemic crisis, random plasma glucose results greater than or equal to 200 mg/dL meet the criteria for diagnosis of diabetes. Reference: Standards of Medical Care in Diabetes 2016, [place] Diabetes Association. Diabetes Care. 2016.39(Suppl 1). Performed By: #### 2 4323-8 #### [facility] [id number] [address] [place] [address] [place] Potassium [Moles/Vol] 4.2 mmol/L Normal 3.7-5.1 [facility] Comment on above: Order Comment: Marlene james Type: BLOOD SPECIMEN Ordering Facility: [facility] Address: [address] [id number] Performed By: #### 2 4323-8 #### [facility] [id number] [address] [place] [address] [place] Protein [Mass/Vol] 6.9 g/dL Normal 6.3-8.0 [facility] Comment on above: Order Comment: Marlene james Type: BLOOD SPECIMEN Ordering Facility: [facility] Address: [address] [place] [address] Performed By: #### 2 4323-8 #### [facility] CLIA [id number] [address] [place] [address] [place] Sodium [Moles/Vol] 137 mmol/L Normal 136-144 [facility] Comment on above: Order Comment: Speci men Type: BLOOD SPECIMEN Ordering Facility: [facility] Address: [address] [place] [address] Performed By: #### 2 4323-8 #### [facility] CLIA [id number] [address] [place] [address] [place] Urea nitrogen [Mass/Vol] 17 mg/dL Normal 9-24 [facility] Comment on above: Order Comment: Speci men Type: BLOOD SPECIMEN Ordering Facility: [facility] Address: [address] [place] [address] Performed By: #### 2 4323-8 #### [facility] CLIA [id number] [address] [place] [address] [place] Lipid 1996 panelon 5 Cholesterol [Mass/Vol] 230 mg/dL High <200 [facility] Comment on above: Order Comment: Speci men Type: BLOOD SPECIMEN Ordering Facility: [facility] Address: [address] [place] [address] Result Comment: <200 mg/dL, Desirable 200-239 mg/dL, Borderline high >239 mg/dL, High Performed By: #### 2 4331-1 #### [facility] CLIA [id number] [address] [facility] [id number] [place] [address] [place] [facility] CLIA [id number] [address] [place] [address] [place] Cholesterol in HDL [Mass/Vol] 52 mg/dL Normal >39 [facility] Comment on above: Order Comment: Speci men Type: BLOOD SPECIMEN Ordering Facility: [facility] Address: [address] [place] [address] Result Comment: 40-5 9 mg/dL, Acceptable >59 mg/dL, High: Negative risk factor for coronary heart disease <40 mg/dL, Low: Positive risk factor for coronary heart disease Performed By: #### 2 4331-1 #### [facility] CLIA [id number] [address] [place] [address] CLIA [id number] [address] [place] [address] Cholesterol in LDL [Mass/Vol] 166 mg/dL High <100 [facility] Comment on above: Order Comment: Marlene james Type: BLOOD SPECIMEN Ordering Facility: [facility] Address: [address] [place] [address] Result Comment: <100 mg/dL, Optimal 100-129 mg/dL, Near optimal/above optimal 130-159 mg/dL, Borderline high 160-189 mg/dL, High >189 mg/dL, Very high Secondary prevention optimal LDL Cholesterol levels are recommended to be < 70 mg/dL Performed By: #### 2 4331-1 #### [facility] CLIA [id number] [address] [place] [address] [facility] CLIA [id number] [address] [place] [address] Cholesterol in LDL/Cholesterol in HDL [Mass ratio] 3.19 {ratio} High <2.54 [facility] Comment on above: Order Comment: Marlene james Type: BLOOD SPECIMEN Ordering Facility: [facility] Address: [address] [place] [address] Result Comment: Becki mantilla: 1. National Cholesterol Education Program ATP III Guideline At-A-Glance Quick Desk Reference: National Heart, Lung, and Blood Needles. National Institutes of Health. 2001: NIH Publication No. 01-3305. 2. An International Atherosclerosis Society position paper: global recommendations for the management of dyslipidemia: executive summary, Atherosclerosis. 2014: 232(2):410-413. Performed By: #### 2 4331-1 #### [facility] CLIA [id number] [address] [place] [address] [place] [facility] CLIA [id number] [address] [place] [address] [place] Cholesterol in VLDL [Mass/Vol] 12 mg/dL Normal <30 [facility] Comment on above: Order Comment: Speci men Type: BLOOD SPECIMEN Ordering Facility: [facility] Address: [address] [place] [address] Performed By: #### 2 4331-1 #### [facility] CLIA [id number] [address] [place] [address] [place] [facility] [id number] [address] [place] [address] [place] Cholesterol non HDL [Mass/Vol] 178 mg/dL High <130 [facility] Comment on above: Order Comment: Speci men Type: BLOOD SPECIMEN Ordering Facility: [facility] Address: [address] [place] [address] Result Comment: <130 mg/dL, Optimal 130-159 mg/dL, Near optimal/above optimal 160-189 mg/dL, Borderline high 190-219 mg/dL, High >219 mg/dL, Very high Secondary prevention optimal non HDL Cholesterol levels are recommended to be <100 mg/dL Performed By: #### 2 4331-1 #### [facility] CLIA [id number] [address] [place] [address] [place] [facility] [id number] [address] [place] [address] [place] Cholesterol.total/C holesterol in HDL [Mass ratio] 4.42 {ratio} Normal <5.10 [facility] Comment on above: Order Comment: Speci men Type: BLOOD SPECIMEN Ordering Facility: [facility] Address: [address] [place] [address] Performed By: #### 2 4331-1 #### [facility] CLIA [id number] [address] [place] [address] [place] [facility] CLIA [id number] [address] [place] [address] [place] FASTING TIME 14 hrs Normal [facility] Comment on above: Order Comment: Speci men Type: BLOOD SPECIMEN Ordering Facility: [facility] Address: [address] [place] [address] Performed By: #### 2 4331-1 #### [facility] CLIA [id number] [address] [place] [address] [place] [facility] CLIA [id number] [address] [place] [address] [place] Triglyceride [Mass/Vol] 60 mg/dL Normal <150 [facility] Comment on above: Order Comment: Speci men Type: BLOOD SPECIMEN Ordering Facility: [facility] Address: [address] [place] [address] Result Comment: <150 mg/dL, Normal 150-199 mg/dL, Borderline high 200-499 mg/dL, High >499 mg/dL, Very high Performed By: #### 2 4331-1 #### [facility] CLIA [id number] [address] [place] [address] [place] [facility] [id number] [address] [place] [address] [place] PSA/PROSTATE SPECIFIC ANTIGE N SCREENINGon 07-08-2024 Prostate specific Ag [Mass/Vol] 4.82 ng/mL High <2.60 [facility] Comment on above: Order Comment: Speci men Type: BLOOD SPECIMEN Ordering Facility: [facility] Address: [address] [place] [address] Result Comment: Tota l PSA test methodology used is the Electrochemiluminescence Immunoassay by [employer]. Total PSA values by differing methodologies cannot be interchanged. For an individual patient, the significance of a PSA level should be interpreted in a broad clinical context, including age, race, family history, digital rectal exam, prostate size, results of prior testing (prostate biopsy, free PSA, PCA3), and use of 5-alpha reductase inhibitors. Considering the high incidence of asymptomatic cancer in the general population that may not pose an ultimate risk to a patient, the decision to recommend urological evaluation or prostate biopsy should be individualized after consideration of all these factors. REFERENCE: Hannah Linares M.D., M.P.H., Ye Nuno M.D., Ph.D., Jeffrey Martínez M.D., Carolyn Ontiveros, M.P.H., Kim Glass Sc.D. Effect of Verification Bias on Screening for Prostate Cancer by Measurement of Prostatic Specific Antigen. N Engl J Med 2003,349:335-42. Performed By: #### P SAS1 #### [facility] CLIA [id number] [address] [place] [address] [place] TESTOSTERONE, FREE AND TOTAL , BY EQUILIBRIUM ULTRAFILTRATION MASS SPECTROMETRYon 07-08-2024 Testosterone [Mass/Vol] 754.2 ng/dL Normal 264.0-916.0 [facility] Comment on above: Order Comment: Speci men Type: BLOOD SPECIMEN Ordering Facility: [facility] Address: [address] [place] [address] Result Comment: This [facility] LC/MS-MS method is currently certified by the CDC Hormone Standardization Program (HoSt). Adult male reference interval is based on a population of healthy nonobese males (BMI <30) between 19 and 39 years old. Theresa, et.al. JCEM 2017,102;1097-1963. PMID: [id number]. Performed By: #### T FTEST #### [facility] CLIA [id number] [address] [facility] [place] [address] Testosterone Free [Mass/Vol] 19.76 ng/dL Normal 5.00-21.00 [facility] Comment on above: Order Comment: Speci men Type: BLOOD SPECIMEN Ordering Facility: [facility] Address: [address] [place] [address] Performed By: #### T FTEST #### [facility] CLIA [id number] [address] [place] [address] Testosterone Free/Testosterone.t otal [Mass fraction] 2.62 % Normal 1.50-4.20 [facility] Comment on above: Order Comment: Speci men Type: BLOOD SPECIMEN Ordering Facility: [facility] Address: [address] [place] [address] Performed By: #### T FTEST #### [facility] CLIA [id number] [address] [place] [address] CNOVon 07-07-2024 CNOV Office Visit (FPWABRIAN ) BRIE CADENA Jerald ([id number]) 1960 M Date Time Provider Department 07/07/24 1:00 PM JACKIE STRONG During your visit today, we recorded the following information about you: Pulse Blood pressure Weight Height 99/minute 181/84 77 kg 1.829 m Jackie Strong MD 07/07/2024 5:06 PM Signed CHIEF COMPLAINT Patient presents with: re-establish care HISTORY OF PRESENT ILLNESS Brie Marques Ramiro is a 64 year old male who presents here today to re-establish care. Not seen for 3 years or so, in part due to insurance. Hypertension/ CAD. - Following with housekeeping and laundry team leader Dr Jackson in [place]. - Having difficulty finding a medication that he has a good response too and does not have side effects - Tried and failed medications - carvedilol (did not have good response, BP elevated), losartan and lisinopril (had good response, BP came down, endorsed GI side effects; cramps), metoprolol (resting heart rate too low), amlodipine - Automation Tester did suggest he try doxazosin, wanted to hold off until he could come in his appointment today. Health Maintenance: Due for LDL Cholesterol Due for Prostate Cancer Screening Discussion Due for Annual PCP Team Chronic Disease Visit Due for BP Controlled (<130/80) Due for Diabetes Screening Due for Influenza Vaccine (1) Due for Covid-19 Vaccine ( season) Due for Depression Screening Due for Anxiety Screening Due for HIV Screening Due for Shingrix Vaccine (1 of 2) Due for Pneumococcal Vaccine: 50+ (1 of 1- PCV) Due for Advance Directive Discussion Past, family and social history reviewed. PAST MEDICAL HISTORY PAST MEDICAL HISTORY Diagnosis Date Abdominal pain, unspecified site CAD (coronary artery disease) Hypertension KURTIS (obstructive sleep apnea) Pure hypercholesterolemia PAST SURGICAL HISTORY Procedure Laterality Date CABG (1) VEIN GRAFT AND ARTERIAL GRAFT 01/19/2011 BENNETT graft, saphenous vein graft COLONOSCOPY FLX DX W/COLLJ SPEC WHEN PFRMD 10/25/2015 Colonoscopy COLONOSCOPY FLX DX W/COLLJ SPEC WHEN PFRMD 01/14/2021 CORONARY STENT INITIAL 01/23/2011 Stent x 2DES CORONARY STENT INITIAL 11/26/2015 [facility], Ramus intermedius, Drug eluting stent. ESOPHAGOGASTRODUODENOSCOPY TRANSORAL DIAGNOSTIC 03/08/2012 EGD ESOPHAGOGASTRODUODENOSCOPY TRANSORAL DIAGNOSTIC 10/25/2015 EGD ESOPHAGOGASTRODUODENOSCOPY TRANSORAL DIAGNOSTIC 01/14/2021 HEART SURGERY HX PAST SURGICAL HISTORY OF 12/20/2010 double heart bypass PAST SURGICAL HISTORY OF catherizations x multiple times PAST SURGICAL HISTORY OF 11/18/2011 angioplasty VASCULAR SURGERY PROCEDURE ALLERGIES Amoxicillin and Protonix [Pantoprazole Sodium] FAMILY HISTORY Problem Relation Age of Onset Heart Mother other (ALS) Father Social History Tobacco Use Smoking status: Never Smokeless tobacco: Never Vaping Use Vaping status: Never Used Substance Use Topics Alcohol use: Yes Comment: rarely Drug use: No REVIEW OF SYSTEMS General: Feels well, no weight changes, fevers or chills. HEENT: No sinus congestion, earache, sore throat. Cardiac: No chest pain, palpitations Resp: No cough, wheeze, shortness of breath GI: No reflux symptoms, food intolerance, bowel changes. : No urinary frequency, dysuria. MS: No pain or joint complaints. PHYSICAL EXAMINATION BP 181/84 Pulse 99 Ht 182.9 cm (6') Wt 77 kg (169 lb 12.1 oz) SpO2 99% BMI 23.02 kg/m? General: Alert, well developed, well nourished, no distress, pleasant and cooperative. HEENT: No adenopathy or thyromegaly Heart: Regular rate and rhythm. Normal S1 and S2. No murmurs, rubs, or gallops. Lungs: Clear to auscultation bilaterally. No respiratory distress. No wheezes, rales, or rhonchi. Abdomen: Soft, non-tender, no distention Extremities: Feet/ankles without edema, posterior tibial pulses full and symmetrical Skin: No rashes or suspicious skin lesions noted. Musculoskeletal: Health Maintenance: Depression Screening Never done Anxiety Screening Never done HIV Screening Never done Shingrix Vaccine(1 of 2) Never done Pneumococcal Vaccine: 50+(1 of 1 - PCV) Never done LDL Cholesterol due on 02/21/2022 Prostate Cancer Screening Discussion due on 04/21/2022 BP Controlled (<130/80) due on 2023 Diabetes Screening due on 01/02/2024 Influenza Vaccine(1) due on 02/14/2024 Covid-19 Vaccine( - 2023- season) due on 02/14/2024 Advance Directive Discussion Never done Annual PCP Team Chronic Disease Visit due on 07/07/2025 Lipid Screening due on 08/29/2026 DTaP,Tdap,Td Vaccine(2 - Td or Tdap) due on 04/14/2027 Colorectal Cancer Screening due on 01/14/2031 RSV Vaccine(1 - 1-dose 75+ series) due on 2034 Hepatitis C Screening Completed Data Reviewed 10/22/2023 External Lab report reviewed in [facility] Most notable results: Chol - 243 (H) GAP- 4 (L) (more content not included)... Normal [facility] 04-20-2024 SEJAL Telephone (FPWADS) BRIE CADENA ([id number]) 1960 M Date Time Provider Department 04/20/24 JACKIE STRONG During your visit today, we recorded the following information about you: Lesly Killian LPN 04/20/2024 3:50 PM Signed Received visit summary from [facility]. Placed in provider's inbox for review. Route to MA scanning Allergies As of Date: 04/20/2024 Noted Allergy Reaction AMOXICILLIN 05/07/2005 Comments: sores in mouth PROTONIX (PANTOPRAZOLE SODIUM) 03/08/2012 5 - Intolerance Date Reviewed: 2022 Reviewed by: Lesly Killian LPN - Fully Assessed Reason for Visit: Received Outside Medical Records [357] Cmt: [facility] Prescriptions as of 04/20/2024 - losartan (COZAAR) 25 mg tablet TAKE 1/2 (ONE-HALF) OF A TABLET BY MOUTH EVERY DAY - sildenafil (REVATIO) 20 mg tablet Take 1-5 tablets by mouth 45-60 mg prior to anticipated intercourse. - nitroglycerin sublingual 0.4 mg SL tablet Dissolve 1 tablet under the tongue every 5 minutes as needed. - Aspirin 81 mg ORAL Tab Take 1 tablet by mouth once daily. Problem List As Of Date 04/20/2024 Noted Resolved Pure hypercholesterolemia [E78.00] CAD (coronary artery disease) [I25.10] 12/30/2010 History of heart bypass surgery [Z95.1] 12/30/2010 SUMMARY [V999.95] 02/28/2012 Weakness [R53.1] 02/28/2012 Abdominal pain [R10.9] 02/28/2012 Aortic root Echodensity [Q24.9] 02/29/2012 Abdominal pain, unspecified site [R10.9] 03/08/2012 Encounter for screening for malignant neoplasm *10/25/2015 10/25/2015 Irritable bowel syndrome without diarrhea [K58.*10/25/2015 10/25/2015 Dysphagia, oropharyngeal [R13.12] 10/25/2015 10/25/2015 Left lower quadrant abdominal pain [R10.32] 01/14/2021 Gastroesophageal reflux disease [K21.9] 01/14/2021 Bowel habit changes [R19.4] 01/14/2021 Personal history of colonic polyps [Z86.0100] 01/14/2021 Degeneration of intervertebral disc of cervical*04/24/2016 Hyperlipidemia [E78.5] 01/24/2011 Hypertension [I10] 12/20/2010 Palpitations [R00.2] 11/21/2015 Presence of stent in coronary artery [Z95.5] 11/14/2015 S/P coronary artery stent placement [Z95.5] 02/12/2012 Encounter Status:Closed by LESLY KILLIAN on 04/20/24 Normal [facility] Cardiology Visit Reporton Cardiology Visit Report [facility] [address] [place] [address] OFFICE VISIT Date of Service: 04/20/24 MR#: [id number] Acct: [id number] Name: BRIE CADENA Rep #: [id number] : 1960 Provider: IGOR casillas Age/Sex: 63/M Location: [facility] Status: Signed HPI HPI History of Present Illness Details: This is a 63-year-old white male who presents today for outpatient cardiovascular follow-up of his history of CAD, PCI, and CABG. He denies chest, arm, jaw, or neck discomfort. He denies palpitations. He denies bilateral lower extremity edema. He denies claudication. He denies shortness of breath with activity, shortness of breath at rest, orthopnea, or PND. He denies chronic cough. He denies significant, sudden weight gain. He denies lightheadedness, dizziness, near-syncope, or syncope. He denies blood in urine, blood in stool, or epistaxis. He denies fever with chills. He denies myalgia. He states fatigue that he attributes to medication. His exercise level has remained stable. Intake Vital Signs 01/18/24 12:54 04/20/24 13:06 04/20/24 13:16 Height 6 ft 6 ft Weight: 174 lb 177 lb BMI 23.6 24.0 BP 180/84 H 204/96 H 188/86 H Blood Pressure Location Lt brachial Lt brachial Lt brachial Position Sitting Sitting Sitting Respiration 16 16 Pulse 80 80 Pulse Source NIBP NIBP Comment Manual BP Intake Visit Reasons: 3 M FU First Sampler Required: No Is patient in pain?: No Allergies penicillin V Allergy (Mild, Verified 04/20/24 13:08) unknown amoxicillin Allergy (Verified 04/20/24 13:08) Unknown amlodipine (From [facility]) Adverse Reaction (Intermediate, Verified 04/20/24 13:08) stomach pain losartan Adverse Reaction (Intermediate, Verified 04/20/24 13:08) respiratory symptoms Medications ???Medication ???Instructions ???Recorded ???Confirmed ???Type aspirin 81 mg chewable tablet 81 mg PO DAILY@0800 11/20/15 04/20/24 History nitroglycerin 0.4 mg sublingual 0.4 mg sublingual Q5-15M PRN chest 06/03/23 04/20/24 Rx tablet pain #25 tabs rosuvastatin 5 mg tablet 5 mg PO DAILY 01/18/24 04/20/24 History losartan 25 mg tablet 25 mg PO DAILY #30 tabs 04/20/24 04/20/24 Rx Ejection fraction %: 60 Have you fallen in the past year?: No PFSH Medical History COVID-19 Degenerative joint disease of cervical spine Presence of stent in coronary artery ( 11/26/15) Atherosclerosis of coronary artery bypass graft without angina pectoris HLD (hyperlipidemia) Palpitations Chest pain Surgical History History of colonoscopy (01/14/21) Presence of coronary angioplasty implant and graft ( 11/26/15) Postsurgical percutaneous transluminal coronary angioplasty (PTCA) status Status post patent foramen ovale closure ( 12/20/10) Aortocoronary bypass status ( 12/20/10) BENNETT to LAD, SVG to ramus intermedius and closure of a PFO coronary artery bypass Family History Mother CAD (coronary artery disease) Father Dayanara Gehrigs disease Aunt CAD (coronary artery disease) Social History Smoking Status: Never smoker alcohol intake: never substance use type: does not use caffeine: No ROS Const Const: Negative for fatigue or weakness Eyes Eyes: Negative for change in vision ENT ENT: Negative for dizziness, Nosebleed/epistaxis or balance problems Cardio Chest Pain: No Palpitations: No Edema: None Muscle aches with walking: None Resp Respiratory: Negative for SOB with activity, SOB at rest, SOB orthopnea SOB lying down, Cough or paroxysmal nocturnal dyspnea GI GI: Negative nausea, heartburn or black,tarry stools : Negative for hematuria Musc Musc: Negative for muscle aches/ myalgia, muscle weakness, joint pain or balance problems Skin Skin: Negative rash Neuro Neuro: Negative for dizziness, lightheadedness, near syncope, syncope or weakness Jaden Hematologic/Lymphatic: Negative for easy bleeding or easy bruising Endo Endo: Negative for fatigue Allergy Allergy/Immunology: Negative for rash Cardiology Exam Const Appearance: cooperative, healthy appearing, comfortable and no acute distress Nutritional Appearance: average body habitus and well nourished Orientation: alert, awake and oriented x3 Head Head: normal to inspection Ears: hearing grossly normal bilaterally Nose: external nose normal Face and Sinus: face symmetric Mouth: moist mucous membranes Eyes General: appearance normal, both eyes and all related structures Eyelids: eyelids normal EOM: EOM intact bilaterally Neck Neck: normal visual inspection and no JVD Carotids: normal carotid upstroke Chest Ch (more content not included)... Normal [facility] Basophil percentageon 2021 Cholesterol [Mass/Vol] 253 mg/dL <200 [facility] Work Phone: Comment on above: <200 mg/dL Desirable 200-240 mg/dL Borderline >240 mg/dL High Risk Triglyceride [Mass/Vol] 91 mg/dL [facility] Work Phone: Comment on above: The drugs N-Acetylcy steine and Metamizole may falsely depress this assay.Serum Triglycerides Reference Interval Normal <150 mg/dL Borderline high 150 - 199 mg/dL High 200 - 499 mg/dL Very High > or = 500 mg/dL Serum or plasma cholesterol in HDL measurement (mass/volume)on 08-29-2021 Cholesterol in HDL [Mass/Vol] 63 mg/dL [facility] Work Phone: Comment on above: The drugs N-Acetylcy steine and Metamizole may falsely depress this assay. Reference Range HDL <40 mg/dL Low HDL Cholesterol HDL >or= 60 mg/dL High HDL Cholesterol Serum or plasma cholesterol in VLDL measurement (mass/volume)on 08-29-2021 Cholesterol in VLDL [Mass/Vol] 18 mg/dL 5-40 [facility] Work Phone: Serum or plasma low density lipoprotein (LDL) cholesterol measurement (mass/volume)on 08-29-2021 Cholesterol in LDL [Mass/Vol] 172 mg/dL 0-130 [facility] Work Phone: CORONAVIRUS PCR [CCL]on COVID 19 Result [employer]OL [employer] OFFICER Negative Normal [facility] Comment on above: Result Comment: Nega tive for COVID19 (SARS CoV2) by PCR. This test was developed and its performance characteristics determined by [facility] Path[facility] and Laboratory [facility]. This test has been authorized by FDA under an Emergency Use Authorization (EUA). This test has been validated in accordance with the FDA's Guidance Document Policy for Diagnostics Testing in Laboratories Certified to Perform High Complexity Testing under CLIA prior to Emergency use Authorization for Coronavirus Disease 2019 during the Public Health Emergency issued on August 13, 2019. [facility] [place] [address] Kevyn Dutton III, M.D. 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 [facility] Comment on above: Result Comment: Nega tive for This test was developed and its performance characteristics determined by [facility]'s [facility] Pathology and Laboratory Medicine [facility]. This test has been authorized by FDA under an Emergency Use Authorization (EUA). This test has been validated in accordance with the FDA's Guidance Document Policy for Diagnostics Testing in Laboratories Certified to Perform High Complexity Testing under CLIA prior to Emergency use Authorization for Coronavirus Disease 2019 during the Public Health Emergency issued on August 13, 2019. COVID19 (SARS This test was developed and its performance characteristics determined by [facility] Pathology and Laboratory [facility]. This test has been authorized by FDA under an Emergency Use Authorization (EUA). This test has been validated in accordance with the FDA's Guidance Document Policy for Diagnostics Testing in Laboratories Certified to Perform High Complexity Testing under CLIA prior to Emergency use Authorization for Coronavirus Disease 2019 during the Public Health Emergency issued on August 13, 2019. CoV2) by PCR. This test was developed and its performance characteristics determined by [facility] Pathology and Laboratory Medicine [facility]. This test has been authorized by FDA under an Emergency Use Authorization (EUA). This test has been validated in accordance with the FDA's Guidance Document Policy for Diagnostics Testing in Laboratories Certified to Perform High Complexity Testing under CLIA prior to Emergency use Authorization for Coronavirus Disease 2019 during the Public Health Emergency issued on August 13, 2019. 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 Lab Report: Lipid Profileon 04-21-2017 Cholesterol 168 mg/dL Invalid Interpretation Code 200 [employer] Work Phone: [phone] HDL Cholesterol 51 mg/dL Invalid Interpretation Code [employer] Work Phone: [phone] LDL Cholesterol 99 mg/dL Invalid Interpretation Code 0-130 [employer] Work Phone: [phone] Triglyceride 92 mg/dL Invalid Interpretation Code [employer] Work Phone: [phone] very low density lipoproteins 18 mg/dL Invalid Interpretation Code 5-40 [employer] Work Phone: [phone] Lab Report: Liver Profileon 04-21-2017 Alanine aminotransferase (ALT) 22 U/L Invalid Interpretation Code 12-78 [employer] Work Phone: [phone] Albumin 3.6 g/dL Invalid Interpretation Code 3.4-5.0 [facility] Work Phone: [phone] Alkaline phosphatase (ALP) 71 U/L Invalid Interpretation Code 45-117 [employer] Work Phone: [phone] Aspartate aminotransferase (AST) 18 U/L Invalid Interpretation Code 15-37 [facility] Work Phone: [phone] Bilirubin (direct) 0.11 mg/dL Invalid Interpretation Code 0.00-0.30 [employer] Work Phone: [phone] Bilirubin (total) 0.60 mg/dL Invalid Interpretation Code 0.20-1.00 [facility] Work Phone: [phone] Globulin 3.8 g/dL Invalid Interpretation Code 2.2-4.2 [employer] Work Phone: [phone] Protein 7.4 g/dL Invalid Interpretation Code 6.4-8.2 [facility] Work Phone: [phone] Office Visiton 10-29-2016 Documentation of current medications (procedure) Done Invalid Interpretation Code [facility] Phone: [phone] Fall risk assessment No Invalid Interpretation Code [facility] Phone: [phone] Clinical Lists Update: 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 10-24-2016 Left ventricular Ejection fraction 65 % Invalid Interpretation Code [employer] Phone: [phone] Office Visiton 04-24-2016 Tobacco smoking status NHIS Former Invalid Interpretation Code [facility] Work Phone: [phone] Tobacco use CPHS Never smoker Invalid Interpretation Code [employer] Phone: [phone] Append: Endo Referralon 02-14 Clinical consultation report (record artifact) [id number]^01/02/2016 Invalid Interpretation Code [employer] Work Phone: [phone] Replaced Document: Jackie Pérez CG Observationson 01-02-2016 EKG QRS axis 38 deg Invalid Interpretation Code [employer] Work Phone: [phone] Interpretation Sinus Bradycardia WI THIN NORMAL LIMITS Invalid Interpretation Code [employer] Work Phone: [phone] P Kiln 49 deg Invalid Interpretation Code [facility] Work Phone: [phone] TX Interval 144 ms Invalid Interpretation Code [employer] Work Phone: [phone] Pulse (Heart Rate) 55 /min Invalid Interpretation Code [facility] Work Phone: [phone] QRS Duration 90 ms Invalid Interpretation Code [facility] Work Phone: [phone] QT Interval new path ms Invalid Interpretation Code [facility] Work Phone: [phone] QTc Sandoval 394 ms Invalid Interpretation Code [employer] Work Phone: [phone] T Kiln 70 deg Invalid Interpretation Code [facility] Work Phone: [phone] Office Visiton 12-28-2015 Chloride 105 mmol/L Invalid Interpretation Code [facility] Work Phone: [phone] CO2 25.0 mmol/L Invalid Interpretation Code [employer] Work Phone: [phone] Creatinine 0.90 mg/dL Invalid Interpretation Code [employer] Work Phone: [phone] Hematocrit (HCT) 49.4 % Invalid Interpretation Code [employer] Work Phone: [phone] Hemoglobin mass conc (Bld) 16.8 g/dL Invalid Interpretation Code [employer] Work Phone: [phone] Platelets 206 10*3/mm3 Invalid Interpretation Code [employer] Work Phone: [phone] Potassium molar conc 4.1 mmol/L Invalid Interpretation Code [employer] Work Phone: [phone] Sodium 137 mmol/L Invalid Interpretation Code [employer] Work Phone: [phone] Thyroid stimulating hormone (TSH) 1.47 u[iU]/mL Invalid Interpretation Code [employer] Work Phone: [phone] Thyroxine (T4) free 9.3 ng/dL Invalid Interpretation Code [facility] Work Phone: [phone] Urea nitrogen 15 mg/dL Invalid Interpretation Code [employer] Work Phone: [phone] WBC (Leukocytes) 8.0 10*3/uL Invalid Interpretation Code [facility] Work Phone: [phone]) Lab Report: Bedside Glucoseo n 12-26-2015 Glucose mass conc 76 mg/dL Invalid Interpretation Code 70-110 [employer] Work Phone: [phone]) Lab Report: PSA,Total- Diagn osticon 10-30-2015 PSA, DIAGNOSTIC 1.51 ng/mL Invalid Interpretation Code 0.0-4.0 [employer] Work Phone: [phone] Office Visit: Warfarin Calco n 04-30-2015 INR Coag RelTime (Bld) Hospital lab Invalid Interpretation Code [facility] Work Phone: [phone] INR Coag RelTime (PPP) 3.0 {INR} Invalid Interpretation Code [employer] Work Phone: [phone] Prothrombin time (PT) Coag time (PPP) 31.0 s Invalid Interpretation Code [employer] Work Phone: [phone] Clinical Lists Update: Pre fish culturist 04-27-2015 BUN/Creatinine Ratio 19.8 mg/mg Invalid Interpretation Code [facility] Work Phone: [phone] Calcium 8.9 mg/dL Invalid Interpretation Code [employer] Work Phone: [phone] Office Visiton 10-25-2014 cardiac risk group C Invalid Interpretation Code [employer] Work Phone: [phone] General cardiovascular disease 10Y risk [#] [place] no N/A Invalid Interpretation Code [facility] Work Phone: [phone] Lab Report: BMPon 11-18-2013 Anion gap 6 mmol/L Normal 5-15 [facility] Work Phone: [phone] eGFR (non-black) 83 mL/min/{1.73_m2} Normal >60 [facility] Work Phone: [phone] eGFR (non-black) 101 mL/min/{1.73_m2} Normal >60 [facility] Work Phone: [phone] Glucose mass conc 82 mg/dL Normal 70-110 [facility] Work Phone: [phone] Clinical Lists Update: Pre fish culturist 02-11-2012 Glucose mass conc 88 mg/dL Invalid Interpretation Code [facility] Work Phone: [phone] Erythrocytes (RBC) 5.18 10*6/uL Invalid Interpretation Code [place] [employer] Work Phone: [phone] MCH 31.1 pg Invalid Interpretation Code [place] [facility] Work Phone: [phone] MCHC mass conc (RBC) 33.7 % Invalid Interpretation Code [place] [employer] Work Phone: [phone] MCV 92.1 fL Invalid Interpretation Code [place] [employer] Work Phone: [phone]) Lab Report: DDIMQ - copyon 0 11-12-2011 DDIMQ <0.22 FEUug/mL Normal 0.22-0.48 [facility] Work Phone: [phone] Lab Report: LIPASE - copyon 11-12-2011 LIPASE 70 U/L Normal 70-290 [facility] Work Phone: [phone]) Lab Report: PT - copyon 10-15 PTP 14.1 SECONDS Normal 11.9-14.4 [place] [employer] Work Phone: [phone] Lab Report: PTT - copyon aPTT 28.3 s Normal 24.1-36.2 [place] [employer] Work Phone: [phone] Lab Report: TROP - copyon Troponin I.cardiac mass conc ng/mL Normal <0.06 [facility] Work Phone: [phone] Vital Signs Date Time Vital Sign Value Performing Clinician Danii fields 02-06-2025 14:38-0400 Diastolic blood pressure 84 mm[Hg] Dr. Angel Strong MD Work Phone: [facility] 02-06-2025 14:38-0400 Systolic blood pressure 171 mm[Hg] Dr. Angel Strong MD Work Phone: [facility] 02-06-2025 14:21-0400 Body height 182.[address] Angel Strong MD Work Phone: [facility] 02-06-2025 14:21-0400 Body mass index (BMI) [Ratio] 23.8 kg/m2 Dr. Angel Strong MD Work Phone: [facility] 02-06-2025 14:21-0400 Body weight 79.[address] Angel Strong MD Work Phone: [facility] 02-06-2025 14:21-0400 Heart rate 89 /min Dr. Angel Strong MD Work Phone: [facility] 02-06-2025 14:21-0400 Respiratory rate 18 /min Dr. Angel Strong MD Work Phone: [facility] 02-06-2025 14:21-0400 SaO2% (BldA) [Mass fraction] 96 % Dr. Angel Strong MD Work Phone: [facility] 07-07-2024 13:06-0500 Body height 182.9 cm Jackie Strong MD Work Phone: [facility] 07-07-2024 13:06-0500 Body mass index (BMI) [Ratio] 23.02 kg/m2 Jackie Strong MD Work Phone: [facility] 07-07-2024 13:06-0500 Body weight 77 kg Jackie Strong MD Work Phone: [facility] 07-07-2024 13:06-0500 Diastolic blood pressure 84 mm[Hg] Jackie Strong MD Work Phone: [facility] 07-07-2024 13:06-0500 Heart rate 99 /min Jackie Strong MD Work Phone: [facility] 07-07-2024 13:06-0500 SaO2% (BldA) [Mass fraction] 99 % Jackie Strong MD Work Phone: [facility] 07-07-2024 13:06-0500 Systolic blood pressure 181 mm[Hg] Jackie Strong MD Work Phone: [facility] 2022 09:15-0500 Diastolic blood pressure 68 mm[Hg] Jackie Strong MD Work Phone: [facility] 2022 09:15-0500 Systolic blood pressure 130 mm[Hg] Jackie Strong MD Work Phone: [facility] 2022 08:58-0500 Body height 182.9 cm Jackie Storng MD Work Phone: [facility] 2022 08:58-0500 Body weight 73.94 kg Jackie Strong MD Work Phone: [facility] 2022 08:58-0500 Heart rate 83 /min Jackie Strong MD Work Phone: [facility] 2022 08:58-0500 SaO2% (BldA) [Mass fraction] 99 % Jackie Strong MD Work Phone: [facility] 08-29-2021 13:31-0400 Body height 182.[address] Angel Strong Work Phone: [facility] Work Phone: 08-29-2021 13:31-0400 Body mass index (BMI) [Ratio] 23.1 kg/m2 Dr. Angel Strong Work Phone: [facility] Work Phone: 08-29-2021 13:31-0400 Body weight 77.[address] Angle Strong Work Phone: [facility] Work Phone: 08-29-2021 13:31-0400 Diastolic blood pressure 90 mm[Hg] Dr. Angel Strong Work Phone: [facility] Work Phone: 08-29-2021 13:31-0400 Heart rate 64 /min Dr. Angel Strong Work Phone: [facility] Work Phone: 08-29-2021 13:31-0400 Respiratory rate 16 /min Dr. Angel Strong Work Phone: [facility] Work Phone: 08-29-2021 13:31-0400 Systolic blood pressure 144 mm[Hg] Dr. Angel Strong Work Phone: [facility] Work Phone: 10-29-2016 13:00-0400 BMI (Body Mass Index) 20.75 kg/m2 Blake Jackson MD [facility] Work Phone: 10-29-2016 13:00-0400 BP Diastolic 80 mm[Hg] Blake Jackson MD [facility] Work Phone: 10-29-2016 13:00-0400 BP Systolic 116 mm[Hg] Blake Jackson MD [facility] Work Phone: 10-29-2016 13:00-0400 Height 185.42 cm Blake Jackson MD [facility] Work Phone: 10-29-2016 13:00-0400 Pulse (Heart Rate) 80 /min Blake Jackson MD [facility] Work Phone: 10-29-2016 13:00-0400 Respiratory Rate 18 /min Blake Jackson MD [facility] Work Phone: 10-29-2016 13:00-0400 Weight 71.35 kg Blake Jackson MD [facility] Work Phone: 04-30-2016 13:35-0500 BSA (Body Surface Area) 1.98 m2 Blake Jackson MD [facility] Work Phone: 05-17-2015 14:18-0500 Body Temperature 97 [degF] Blake Jackson MD [facility] Work Phone: Encounters Encounter Date Encounter Type Care Provider Facility Start: 03-01-2025 ambulatory Caio Kelley Facility :[facility] Start: 02-06-2025 End: 02-06-[address] Caio Kelley MD -[facility] Work Phone: Start: 02-06-2025 End: 02-06-[address] Angel Strong MD Work Phone: [facility] Start: 02-06-2025 End: 02-06-2025 Telephone encounter Jackie Strong MD Work Phone: [facility][1] Comment on above: Received Outside Med ical Records ([facility] Visit summary 02/06/2025 hypertension) Start: 07-12-2024 End: 07-12-2024 ambulatory Jackie Strong MD Work Phone: [facility][1] Comment on above: lab Start: 07-12-2024 End: 07-12-2024 E-mail encounter from caregiver Jackie Strong MD Work Phone: [facility][1] Start: 07-08-2024 End: 07-08-2024 ambulatory JACKIE STRONG Facility:[facility] Start: 07-07-2024 End: 07-07-2024 ambulatory JACKIE STRONG Facility:[facility] Start: 07-07-2024 End: 07-07-2024 Office outpatient visit 25 minutes Jackie Strong MD Work Phone: [facility][1] Comment on above: Resistant 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); Medication side effect; Coronary artery disease involving jena heart, unspecified vessel or lesion type, unspecified whether angina present; Presence of stent in coronary artery; Screening for prostate cancer Start: 04-20-2024 End: 04-20-2024 Telephone encounter Jackie Strong MD Work Phone: [facility][1] Comment on above: Received Outside Med ical Records ([facility]) Start: 04-20-2024 End: 04-20-2024 ambulatory Dru Iverson NP Facility:[facility] Start: 01-19-2024 Telephone encounter Jackie Strong MD Work Phone: [facility][1] Comment on above: Received Outside Med ical Records ([facility] Visit summary 01/18/2024 f/u CAD, PCI, and CABG) Start: 10-22-2023 Telephone encounter Jackie Strong MD Work Phone: [facility][1] Comment on above: outside labs ([facility] 10/22/23) Start: 10-16-2023 Telephone encounter Jackie Strong MD Work Phone: [facility][1] Comment on above: Received Outside Med ical Records ([facility] Visit summary 10/15/2022 ) Start: 01-19-2023 Telephone encounter Jackie Strong MD Work Phone: [facility][1] Comment on above: Received Outside Med ical Records ([facility] Office Visit summary 01/15/2023 CAD, PCI and CABG) Start: 2022 End: 2022 Patient encounter procedure Jackie Strong MD Work Phone: [facility][1] Comment on above: Coronary artery dise ase involving jena heart, unspecified vessel or lesion type, unspecified whether angina present (Primary Dx); ED (erectile dysfunction) of organic origin; Pure hypercholesterolemia; Essential hypertension Start: 06-03-2022 Refill Jackie escamilla MD Work Phone: [facility][1] Comment on above: Refill Request Start: 05-21-2022 Telephone encounter Jackie Strong MD Work Phone: [facility][1] Comment on above: Received Outside Med ical Records ([facility] office summary 05/21/2022) Start: 08-29-2021 End: 08-29-[address] Angel Strong Work Phone: [facility] Start: 08-29-2021 End: 08-29-[address] Angel Strong Work Phone: [facility] Start: 05-14-2020 End: 05-14-2020 Patient encounter procedure JEFFREY VILLA [facility] Procedures Date Procedure Procedure Detail Performing Clinician Start: 07-08-2024 Lipid 1996 panel - S salina or Plasma Jackie Strong MD Work Phone: Start: 08-29-2021 Lipid 1996 panel - S salina or Plasma Jackie Strong MD Work Phone: Start: 01-14-2021 Naya gutiérrez MD Work Phone: Start: 10-29-2016 End: 04-21-2017 *Hepatic Function Panel Blake Jackson MD Start: 10-29-2016 End: 04-21-2017 Lipid 1996 panel - Serum or Plasma Blake Jackson MD Start: 08-08-2016 End: 10-29-2016 *Hepatic Function Panel Blaek Jackson MD Start: 08-08-2016 End: 10-29-2016 Lipid 1996 panel - Serum or Plasma Blake Jackson MD Start: 04-30-2016 End: 06-26-2016 *Hepatic Function Panel Blake Jackson MD Start: 04-30-2016 End: 04-30-2016 Follow Up Appt 6 months Blake Jackson MD Start: 04-30-2016 End: 06-26-2016 Lipid 1996 panel - Serum or Plasma Blake Jackson MD Start: 04-30-2016 End: 04-30-2016 PFM Blake Jackson MD Start: 01-21-2016 End: 04-30-2016 *Hepatic Function Panel Blake Jackson MD Start: 01-21-2016 End: 04-30-2016 Lipid 1996 panel - Serum or Plasma Blake Jackson MD Start: 01-02-2016 End: 01-02-2016 Ecg routine ecg w/least 12 lds w/i&r Blake Jackson MD Start: 01-02-2016 End: 01-03-2016 Referral to alligator trapper Blake Jackson MD Start: 12-03-2015 End: 12-05-2015 Ecg routine ecg w/least 12 lds w/i&r Blake Jackson MD Start: 12-03-2015 End: 12-05-2015 Follow Up Appt 6 months Blake Jackson MD Start: 12-03-2015 End: 12-05-2015 PFM Blake Jackson MD Start: 12-03-2015 End: 12-04-2015 Referral to housekeeping and laundry team leader Blake moreno MD Start: 11-21-2015 End: 01-02-2016 Xtrnl mobile cv telemetry w/i&report 30 days Blake Jackson MD Start: 10-31-2015 End: 01-02-2016 *Hepatic Function Panel Blake Jackson MD Start: 10-31-2015 End: 10-31-2015 Follow Up Appt 6 months Blake Jackson MD Start: 10-31-2015 End: 01-02-2016 Lipid 1996 panel - Serum or Plasma Blake Jackson MD Start: 10-31-2015 End: 10-31-2015 PFM Blake Jackson MD Start: 10-29-2015 End: 10-30-2015 *Hepatic Function Panel Blake Jackson MD Start: 10-29-2015 End: 10-30-2015 Lipid 1996 panel - Serum or Plasma Blake Jackson MD Start: 05-17-2015 End: 01-02-2016 Colonoscopy flx dx w/collj spec when pfrmd Lana Arnold Work Phone: Start: 05-17-2015 End: 01-02-2016 Hepatobiliary imaging Lana Arnold Work Phone: Start: 04-25-2015 End: 04-26-2015 Documentation of current medications Blake Jackson MD Start: 04-25-2015 End: 04-25-2015 Ecg routine ecg w/least 12 lds w/i&r Blake Jackson MD Start: 04-25-2015 End: 01-02-2016 Follow Up Appt 6 months Blake Jackson MD Start: 04-25-2015 End: 01-02-2016 PFM Blake Jackson MD Start: 04-25-2015 End: 01-02-2016 Stress Echocardiogram (treadmill) Blake Jackson MD Start: 10-25-2014 End: 01-02-2016 *Hepatic Function Panel Blake Jackson MD Start: 10-25-2014 End: 10-26-2014 Documentation of current medications Blake Jackson MD Start: 10-25-2014 End: 01-02-2016 Follow Up Appt 6 months Blake Jackson MD Start: 10-25-2014 End: 01-02-2016 Lipid 1996 panel - Serum or Plasma Blake Jackson MD Start: 10-25-2014 End: 01-02-2016 PFM Blake Jackson MD Start: 08-23-2014 End: 08-24-2014 Documentation of current medications Caio Harrington Work Phone: Start: 08-23-2014 End: 01-02-2016 Radex shoulder complete minimum 2 views Caio Harrington Work Phone: Start: 08-23-2014 End: 08-24-2014 Smoking cessation education Caio Harrington Work Phone: Start: 07-25-2014 End: 01-02-2016 *Hepatic Function Panel Blake Jackson MD Start: 07-25-2014 End: 01-02-2016 Lipid 1996 panel - Serum or Plasma Blake Jackson MD Start: 04-26-2014 End: 04-26-2014 Ecg routine ecg w/least 12 lds w/i&r Blake Jackson MD Start: 04-26-2014 End: 04-26-2014 Follow Up Appt 6 months Blake Jackson MD Start: 04-26-2014 End: 04-26-2014 PFM Blake Jackson MD Start: 04-26-2014 End: 01-02-2016 Stress Echocardiogram (treadmill) Blake Jackson MD Start: 04-24-2014 End: 04-24-2014 *Hepatic Function Panel Blake Jackson MD Start: 04-24-2014 End: 04-24-2014 Lipid 1996 panel - Serum or Plasma Blake Jackson MD Start: 10-14-2013 End: 11-18-2013 *BMP Blake Jackson MD Start: 10-14-2013 End: 11-18-2013 *Hepatic Function Panel Blake Jackson MD Start: 10-14-2013 End: 10-14-2013 Follow Up Appt 6 months Blake Jackson MD Start: 10-14-2013 End: 11-18-2013 Lipid 1996 panel - Serum or Plasma Blake Jackson MD Start: 10-14-2013 End: 10-14-2013 MMM Blake Jackson MD Start: 04-13-2013 End: 04-24-2014 *Hepatic Function Panel Blake Jackson MD Start: 04-13-2013 End: 04-13-2013 Follow Up Appt 6 months Blake Jackson MD Start: 04-13-2013 End: 04-24-2014 Lipid 1996 panel - Serum or Plasma Blake Jackson MD Start: 04-13-2013 End: 04-13-2013 PFM Blake Jackson MD Start: 01-21-2013 End: 04-13-2013 *Hepatic Function Panel Blake Jackson MD Start: 01-21-2013 End: 04-13-2013 Lipid 1996 panel - Serum or Plasma Blake Jackson MD Start: 09-27-2012 End: 12-08-2012 *Hepatic Function Panel Blake Jackson MD Start: 09-27-2012 End: 09-27-2012 Follow Up Appt 6 months Blake Jackson MD Start: 09-27-2012 End: 12-08-2012 Lipid 1996 panel - Serum or Plasma Blake Jackson MD Start: 09-27-2012 End: 09-27-2012 PFM Blake Jackson MD Start: 03-10-2012 End: 01-02-2016 Cardiac Rehab Blake Jackson MD Start: 03-10-2012 End: 09-27-2012 Cardiovascular stress test using treadmill Blake Jackson MD Start: 03-10-2012 End: 09-27-2012 Follow Up Appt 6 months Blake Jackson MD Start: 02-12-2012 History of placement of stent for coronary artery disease S/P coronary artery stent placement Jackie Strong MD Work Phone: Start: 11-28-2011 End: 12-24-2011 Follow Up Appt 3 months Blake Jackson MD Start: 11-28-2011 End: 09-27-2012 Nuclear stress test -exercise Blake Jackson MD Start: 11-26-2011 End: 09-27-2012 Lipid 1996 panel - Serum or Plasma Blake Jackson MD Start: 10-03-2011 End: 10-03-2011 Follow Up Appt 6 months Blake Jackson MD Start: 06-19-2011 End: 08-26-2011 *Hepatic Function Panel Blake Jackson MD Start: 06-19-2011 End: 06-19-2011 Follow Up Appt 3 months Blake Jackson MD Start: 06-19-2011 End: 06-19-2011 Follow Up Appt Other Blake Jackson MD Start: 06-19-2011 End: 08-26-2011 Lipid 1996 panel - Serum or Plasma Blake Jackson MD Start: 12-13-2010 History of coronary artery bypass grafting Aortocoronary bypass status Dr. Angel Strong Work Phone: Comment on above: CABG x2-BENNETT to LAD, SVG to Ramus Intermedius and closure of PFO 12/20/10 Plan of Treatment Date Care Activity Detail Author Start: 2034 RSV Vaccine (1 - 1-d ose 75+ series) RSV Vaccine (1 - 1-dose 75+ series) [facility] Start: 01-14-2031 Colonoscopy COLONOSCOPY [facility] Start: 01-14-2031 COLORECTAL CANCER SCREENING COLORECTAL CANCER SCREENING [facility] Start: 01-14-2031 Screening for malign ant neoplasm of colon [facility] Start: 07-08-2029 Lipid panel Lipid Screening [facility] Start: 07-08-2029 Prostate specific an tigen measurement Prostate Cancer Screening Discussion [facility] Start: 07-08-2027 Diabetes Screening Diabetes Screenin g [facility] Start: 04-14-2027 Urine microalbumin profile [facility] Start: 08-29-2026 Lipid panel Lipid Screening [facility] Start: 08-29-2026 LIPID SCREEN LIPID SCREEN [facility] Start: 07-08-2025 Hepatitis B surface antibody level LDL Cholesterol [facility] Start: 07-07-2025 Annual PCP Team Auto Tune Up Mechanic dillan Disease Visit Annual PCP Team Chronic Disease Visit [facility] Start: 02-13-2025 Influenza vaccination Influenza Vacc ine (#1) [facility] Start: 07-07-2024 End: 10-06-2024 CBC panel - Blood by Automated count COMPLETE BLOOD COUNT Lab Routine Resistant hypertension Coronary artery disease involving jena heart, unspecified vessel or lesion type, unspecified whether angina present Expected: 07/07/2024, Expires: 10/06/2024 [facility] Comment on above: Expected: 07/07/2024 , Expires: 10/06/2024 Start: 07-07-2024 End: 10-06-2024 Comprehensive metabolic 2000 panel - Serum or Plasma COMPREHENSIVE METABOLIC PANEL Lab Routine Resistant hypertension Coronary artery disease involving jena heart, unspecified vessel or lesion type, unspecified whether angina present Expected: 07/07/2024, Expires: 10/06/2024 [facility] Work Phone: Comment on above: Expected: 07/07/2024 , Expires: 10/06/2024 Start: 07-07-2024 End: 10-06-2024 Lipid 1996 panel - Serum or Plasma LIPID PANEL BASIC Lab Routine Resistant hypertension Coronary artery disease involving jena heart, unspecified vessel or lesion type, unspecified whether angina present Expected: 07/07/2024, Expires: 10/06/2024 [facility] Comment on above: Expected: 07/07/2024 , Expires: 10/06/2024 Start: 07-07-2024 End: 10-06-2024 PSA/PROSTATE SPECIFIC ANTIGEN SCREENING PSA/PROSTATE SPECIFIC ANTIGEN SCREENING Lab Routine Resistant hypertension Coronary artery disease involving jena heart, unspecified vessel or lesion type, unspecified whether angina present Screening for prostate cancer Expected: 07/07/2024, Expires: 10/06/2024 [facility] Comment on above: Expected: 07/07/2024 , Expires: 10/06/2024 Start: 07-07-2024 End: 10-06-2024 TESTOSTERONE, FREE AND TOTAL, BY EQUILIBRIUM ULTRAFILTRATION MASS SPECTROMETRY TESTOSTERONE, FREE AND TOTAL, BY EQUILIBRIUM ULTRAFILTRATION MASS SPECTROMETRY Lab Routine Resistant hypertension Coronary artery disease involving jena heart, unspecified vessel or lesion type, unspecified whether angina present Expected: 07/07/2024, Expires: 10/06/2024 [facility] Comment on above: Expected: 07/07/2024 , Expires: 10/06/2024 Start: 06-15-2024 Advance Directive Discussion Advance Directive Discussion [facility] Start: 05-15-2024 Medicare Annual Well ness Visit Medicare Annual Wellness Visit [facility] Start: 02-14-2024 Covid-19 Vaccine () Covid-19 Vaccine () [facility] Start: 02-14-2024 Influenza vaccination C [facility] Start: 01-02-2024 DIABETES SCREEN DIABETES SCREEN [facility] Start: 01-02-2024 Diabetes Screening Diabetes Screenin g [facility] Start: 06-15-2023 Behavioral Health Screening Behavioral Health Screening [facility] Start: 2023 ANNUAL PCP TEAM NON DESTRUCTIVE TESTER DILLAN DISEASE VISIT ANNUAL PCP TEAM CHRONIC DISEASE VISIT [facility] Start: 2023 BP CONTROLLED (<130/80) BP CONTROLLE D (<130/80) [facility] Start: 2023 COVID-19 VACCINE (3 - Booster for Pfizer series) COVID-19 VACCINE (3 - Booster for Pfizer series) [facility] Comment on above: Postponed from 11/17 (Declined at this time) Start: 2023 COVID-19 VACCINE (3 - Pfizer series) COVID-19 VACCINE (3 - Pfizer series) [facility] Comment on above: Postponed from 11/17 (Declined at this time) Start: 2023 SHINGRIX VACCINE (1 of 2) CLARK GRIX VACCINE (1 of 2) [facility] Comment on above: Postponed from 06/05 (Declined at this time) Start: 02-13-2023 Covid-19 Vaccine ( season) Covid-19 Vaccine ( season) [facility] Start: 02-13-2023 Influenza vaccination INFLUENZA (#1) [facility] Start: 12-12-2022 Influenza vaccination INFLUENZA (#1) [facility] Comment on above: Postponed from 02/13 (Declined at this time) Start: 06-15-2022 DEPRESSION ASSESSMENT DEPRESSION ASS ESSMENT [facility] Start: 04-21-2022 PROSTATE CANCER SCRE ENING DISCUSSION PROSTATE CANCER SCREENING DISCUSSION [facility] Start: 04-21-2022 Prostate specific an tigen measurement Prostate Cancer Screening Discussion [facility] Start: 02-21-2022 Hepatitis B surface antibody level LDL CHOLESTEROL [facility] Start: 02-13-2022 Influenza vaccination INFLUENZA (#1) [facility] Start: 01-01-2022 ANNUAL PCP TEAM NON DESTRUCTIVE TESTER DILLAN DISEASE VISIT ANNUAL PCP TEAM CHRONIC DISEASE VISIT [facility] Start: 06-15-2021 DEPRESSION ASSESSMENT DEPRESSION ASS ESSMENT [facility] Start: 11-17-2020 COVID-19 VACCINE (3 - Booster for Pfizer series) COVID-19 VACCINE (3 - Booster for Pfizer series) [facility] Start: 2019 RSV Vaccine (1 - 1-d ose 60+ series) RSV Vaccine (1 - 1-dose 60+ series) [facility] Start: 11-04-2017 End: 11-04-2017 Appointment Appointment [facility] Work Phone: Start: 04-22-2017 End: 04-22-2017 Appointment Appointment [facility] Work Phone: Start: 10-29-2016 End: 04-21-2017 *Hepatic Function Panel *Hepatic Function Panel [facility] Work Phone: Start: 10-29-2016 End: 10-29-2016 Follow Up Appt 6 months Follow Up Appt 6 months [facility] Work Phone: Start: 10-29-2016 End: 04-21-2017 Lipid panel [AGGREGATE] *Lipid Profile CC PCP [facility] Work Phone: Start: 10-29-2016 End: 10-29-2016 PFM PFM [facility] Work Phone: Start: 08-08-2016 End: 10-29-2016 *Hepatic Function Panel *Hepatic Function Panel [facility] Work Phone: Start: 08-08-2016 End: 10-29-2016 Lipid panel [AGGREGATE] *Lipid Profile CC PCP [facility] Work Phone: Start: 04-30-2016 End: 06-26-2016 *Hepatic Function Panel *Hepatic Function Panel [facility] Work Phone: Start: 04-30-2016 End: 04-30-2016 Follow Up Appt 6 months Follow Up Appt 6 months [facility] Work Phone: Start: 04-30-2016 End: 06-26-2016 Lipid panel [AGGREGATE] *Lipid Profile CC PCP [facility] Work Phone: Start: 04-30-2016 End: 04-30-2016 PFM PFM [facility] Work Phone: Start: 04-30-2016 End: 04-30-2016 Physical Therapy [facility], [address] [place] [address], [id number] [facility] Work Phone: Start: 04-24-2016 End: 04-24-2016 Radex hip unilateral with pelvis 2-3 views X-Ray, Hip, unilateral, with pelvis; 2-3 views [facility] Work Phone: Start: 04-24-2016 End: 04-24-2016 Radex spine cervical 2 or 3 views X-Ray, Spine, Cervical 2-3 views [facility] Work Phone: Start: 01-21-2016 End: 04-30-2016 *Hepatic Function Panel *Hepatic Function Panel [facility] Work Phone: Start: 01-21-2016 End: 04-30-2016 Lipid panel [AGGREGATE] *Lipid Profile CC PCP [facility] Work Phone: Start: 01-02-2016 End: 01-02-2016 Ecg routine ecg w/least 12 lds w/i&r EKG (In office) [facility] Work Phone: Start: 01-02-2016 End: 01-02-2016 Endocrinology Referral Endocrinology Referral Andrea Lockett DO, [address], , [place], [address] [facility] Work Phone: Start: 01-02-2016 End: 01-02-2016 Follow Up Appt Other Follow Up Appt Other [facility] Work Phone: Start: 12-03-2015 End: 12-06-2015 Cardiac Rehab Card[facility] Re[facility] [address] [place], [address] [facility] Work Phone: Start: 12-03-2015 End: 12-05-2015 Ecg routine ecg w/least 12 lds w/i&r EKG (In office) [facility] Work Phone: Start: 12-03-2015 End: 12-05-2015 Follow Up Appt 6 months Follow Up Appt 6 months [facility] Work Phone: Start: 12-03-2015 End: 12-05-2015 [facility]: Start: 11-21-2015 End: 11-21-2015 Xtrnl mobile cv telemetry w/i&report 30 days 30 Day Holter Monitor [facility] Work Phone: Start: 10-31-2015 End: 01-02-2016 *Hepatic Function Panel *Hepatic Function Panel [facility] Work Phone: Start: 10-31-2015 End: 10-31-2015 Follow Up Appt 6 months Follow Up Appt 6 months [facility] Work Phone: Start: 10-31-2015 End: 01-02-2016 Lipid panel [AGGREGATE] *Lipid Profile CC PCP [facility] Work Phone: Start: 10-31-2015 End: 10-31-2015 PFM PFM [facility] Work Phone: Start: 10-29-2015 End: 10-30-2015 *Hepatic Function Panel *Hepatic Function Panel [facility] Work Phone: Start: 10-29-2015 End: 10-30-2015 Lipid panel [AGGREGATE] *Lipid Profile CC PCP [facility] Work Phone: Start: 05-17-2015 End: 01-02-2016 Colonoscopy flx dx w/collj spec when pfrmd Colonoscopy [facility] Work Phone: Start: 05-17-2015 End: 01-02-2016 Hepatobiliary imaging NM HIDA Scan with EF [facility] Work Phone: Start: 04-25-2015 End: 04-25-2015 Ecg routine ecg w/least 12 lds w/i&r EKG (In office) [facility] Work Phone: Start: 04-25-2015 End: 01-02-2016 Follow Up Appt 6 months Follow Up Appt 6 months [facility] Work Phone: Start: 04-25-2015 End: 01-02-2016 PFM PFM [facility] Work Phone: Start: 04-25-2015 End: 04-25-2015 Stress Echocardiogram (treadmill) Stress Echocardiogram (treadmill) [facility] Work Phone: Start: 10-25-2014 End: 01-02-2016 *Hepatic Function Panel *Hepatic Function Panel [facility] Work Phone: Start: 10-25-2014 End: 01-02-2016 Follow Up Appt 6 months Follow Up Appt 6 months [facility] Work Phone: Start: 10-25-2014 End: 01-02-2016 Lipid panel [AGGREGATE] *Lipid Profile CC PCP [facility] Work Phone: Start: 10-25-2014 End: 01-02-2016 PFM PFM [facility] Work Phone: Start: 08-23-2014 End: 01-02-2016 Radex shoulder complete minimum 2 views X-Ray, Shoulder [facility] Work Phone: Start: 07-25-2014 End: 01-02-2016 *Hepatic Function Panel *Hepatic Function Panel [facility] Work Phone: Start: 07-25-2014 End: 01-02-2016 Lipid panel [AGGREGATE] *Lipid Profile CC PCP [facility] Work Phone: Start: 05-15-2014 End: 11-21-2013 *Hepatic Function Panel *Hepatic Function Panel [facility] Work Phone: Start: 05-15-2014 End: 11-21-2013 Lipid panel [AGGREGATE] *Lipid Profile CC PCP [facility] Work Phone: Start: 04-26-2014 End: 04-26-2014 Ecg routine ecg w/least 12 lds w/i&r EKG (In office) [facility] Work Phone: Start: 04-26-2014 End: 04-26-2014 Follow Up Appt 6 months Follow Up Appt 6 months [facility] Work Phone: Start: 04-26-2014 End: 04-26-2014 PFM PFM [facility] Work Phone: Start: 04-26-2014 End: 04-26-2014 Stress Echocardiogram (treadmill) Stress Echocardiogram (treadmill) [facility] Work Phone: Start: 10-14-2013 End: 11-18-2013 *BMP *BMP [facility] Work Phone: Start: 10-14-2013 End: 11-18-2013 *Hepatic Function Panel *Hepatic Function Panel [facility] Work Phone: Start: 10-14-2013 End: 10-14-2013 Follow Up Appt 6 months Follow Up Appt 6 months [facility] Work Phone: Start: 10-14-2013 End: 11-18-2013 Lipid panel [AGGREGATE] *Lipid Profile CC PCP [facility] Work Phone: Start: 10-14-2013 End: 10-14-2013 MMM MMM [facility] Work Phone: Start: 04-13-2013 End: 04-24-2014 *Hepatic Function Panel *Hepatic Function Panel [facility] Work Phone: Start: 04-13-2013 End: 04-13-2013 Follow Up Appt 6 months Follow Up Appt 6 months [facility] Work Phone: Start: 04-13-2013 End: 04-24-2014 Lipid panel [AGGREGATE] *Lipid Profile CC PCP [facility] Work Phone: Start: 04-13-2013 End: 04-13-2013 PFM PFM [facility] Work Phone: Start: 01-21-2013 End: 04-13-2013 *Hepatic Function Panel *Hepatic Function Panel [facility] Work Phone: Start: 01-21-2013 End: 04-13-2013 Lipid panel [AGGREGATE] *Lipid Profile CC PCP [facility] Work Phone: Start: 09-27-2012 End: 12-08-2012 *Hepatic Function Panel *Hepatic Function Panel [facility] Work Phone: Start: 09-27-2012 End: 09-27-2012 Follow Up Appt 6 months Follow Up Appt 6 months [facility] Work Phone: Start: 09-27-2012 End: 12-08-2012 Lipid panel [AGGREGATE] *Lipid Profile [facility] Work Phone: Start: 09-27-2012 End: 09-27-2012 PFM PFM [facility] Work Phone: Start: 03-10-2012 End: 01-02-2016 Cardiac Rehab Cardiac Rehab [facility] Work Phone: Start: 03-10-2012 End: 09-27-2012 Cardiovascular stress test using treadmill Treadmill stress test (no imaging) [facility] Work Phone: Start: 03-10-2012 End: 09-27-2012 Follow Up Appt 6 months Follow Up Appt 6 months [facility] Work Phone: Start: 11-28-2011 End: 12-24-2011 Follow Up Appt 3 months Follow Up Appt 3 months [facility] Work Phone: Start: 11-28-2011 End: 12-24-2011 Nuclear stress test -exercise Nuclear stress test -exercise [facility] Work Phone: Start: 11-26-2011 End: 09-27-2012 Lipid panel [AGGREGATE] *Lipid Profile [facility] Work Phone: Start: 10-03-2011 End: 10-03-2011 Follow Up Appt 6 months Follow Up Appt 6 months [facility] Work Phone: Start: 06-19-2011 End: 08-26-2011 *Hepatic Function Panel *Hepatic Function Panel [facility] Work Phone: Start: 06-19-2011 End: 06-19-2011 Follow Up Appt 3 months Follow Up Appt 3 months [facility] Work Phone: Start: 06-19-2011 End: 06-19-2011 Follow Up Appt Other Follow Up Appt Other [facility] Work Phone: Start: 06-19-2011 End: 08-26-2011 Lipid panel [AGGREGATE] *Lipid Profile [facility] Work Phone: Start: 2009 Pneumococcal Vaccine : 50+ (1 of 1 - PCV) Pneumococcal Vaccine: 50+ (1 of 1 - PCV) [facility] Start: 2009 SHINGRIX VACCINE (1 of 2) CLARK GRIX VACCINE (1 of 2) [facility] Start: 2004 COLOGUARD (FIT-DNA) COLOGUARD (FIT-D NA) [facility] Start: [address] COLONOGRAPHY [facility] Start: 2004 FECAL OCCULT BLOOD FECAL OCCULT BLOO D [facility] Start: 2004 Screening for malign ant neoplasm of colon [facility] Start: 2004 SIGMOIDOSCOPY SIGMOIDOSCOPY [facility] Start: 1977 Anxiety Screening Anxiety Screening [facility] Start: 1977 Depression Screening Depression Scre ening [facility] Start: 1977 HIV SCREENING HIV SCREENING [facility] Start: 1977 HIV screening HIV Screening [facility] Basic metabolic 2008 panel with ionized calcium - Serum or Plasma [facility] Work Phone: [facility] Immunizations Immunization Date Immunization Notes Care Provider Jamari high 09-22-2020 COVID-19 original vaccine, age 12+ yr, monovalent (PFIZER-BIONTECH - PURPLE TOP) Jackie Strong MD Work Phone: [facility] 09-01-2020 COVID-19 original vaccine, age 12+ yr, monovalent (PFIZER-BIONTECH - PURPLE TOP) Jackie Strong MD Work Phone: [facility] Work Phone: 03-10-2019 zoster vaccine, recombinant, adjuvanted, (SHINGRIX) 50 mcg/0.5 mL injection Jackie Strong MD Work Phone: [facility] Work Phone: Comment on above: Inject 0.5 mL intram uscularly as directed. Once now and repeat dose in 2 to 6 mos. 03-09-2019 influenza, injectabl e, quadrivalent, preservative free Jackie Strong MD Work Phone: [facility] 03-09-2019 influenza virus vacc ine, unspecified formulation Jackie Strong MD Work Phone: [facility] 05-01-2018 influenza, injectabl e, quadrivalent, preservative free Jackie Strong MD Work Phone: [facility] 04-14-2017 influenza, injectabl e, quadrivalent, contains preservative Jackie Strong MD Work Phone: [facility] 04-14-2017 tetanus toxoid, redu rex diphtheria toxoid, and acellular pertussis vaccine, adsorbed Jackie Strong MD Work Phone: [facility] Payers Date Payer Category Payer Medicare [id number] 2024 Medicare [id number] 2024 Self-pay [id number] 2024 Unknown [id number] 2021 Unknown [id number] 2020 Private Health Insurance [id number] 2016 Unknown [id number] 1959 Unknown [id number] Medicare [id number] Private Health Insurance [id number] Unknown [id number] Unknown [id number] Unknown [id number] Social History Date Type Detail Facility Start: [facility] Work Phone: Start: 02-21-2021 Rare [facility] Start: 02-21-2021 None [facility] Start: 11-20-2015 Spouse/ Signif icant Other [facility] Start: 02-21-2021 Non-smoker [facility] Start: 1960 Sex Assigned At Male [facility] Start: 10-10-2015 End: 2022 Tobacco smoking status NHIS Never smoked tobacco [facility] Work Phone: Start: 10-10-2015 End: 2022 Tobacco use and exposure Smokeless tobacco non-user [facility] Work Phone: History of tobacco use Snuff User [facility] Work Phone: Start: 01-21-2021 End: 07-07-2024 Alcohol intake Current drinker of alcohol (finding) [facility] Start: 01-14-2021 [facility] Start: 2022 End: 07-06-2024 History of Social function [facility] Work Phone: Start: 2022 End: 07-06-2024 Tobacco use panel [facility] Work Phone: Start: 05-16-2012 Adult Depression Screening Assessment 0 [facility] Work Phone: Start: 08-22-2020 Gender identity Identifies as male gender (finding) [facility] Start: 08-22-2020 Sexual orientation Heterosexual (darin oviedo) [facility] Has the [employer], or [employer] threatened to shut off services in your home in past 12Mo No [facility] Are you now , , , , never or living with a partner? [facility] How often to you hav e a drink containing alcohol? Never [facility] Do you feel stress - tense, restless, nervous, or anxious, or unable to sleep at night because your mind is troubled all the time - these days [OSQ] Not at all [facility] Clinical Notes 12-13-2010 to 02-06-2025 Telephone Encounter - Rose Starr LPN - 02/06/2025 3:27 PM EDTTelephone Encounter - Rose Starr LPN - 02/06/2025 3:27 PM EDTTelephone Encounter - Jackie Strong MD - 07/12/2024 4:08 PM EST Note Date & Type Note Facility 02-06-2025 Telephone encounter Note Received 02/06/2025 from [facility]. Placed in provider's inbox for review. Route to [place] for scanning. [facility] 02-06-2025 Miscellaneous Notes Received 02/06/2025 from [facility]. Placed in provider's inbox for review. Route to [place] for scanning. documented in this encounter [facility] 07-12-2024 Telephone encounter Note Patient Msg on 07/12/24 CONSULT TO UROLOGY Jackie Strong MD [facility] 07-12-2024 Miscellaneous Notes Patient Msg on 07/12/24 CONSULT TO UROLOGY Jackie Strong MD documented in this encounter [facility] 07-07-2024 Note HNO ID: [id number] Author: JACKIE STRONG MD Service: ? Author Type: Physician Type: Progress Notes Filed: 07/07/2024 17:06 Note Text: CHIEF COMPLAINT Patient presents with: re-establish care HISTORY OF PRESENT ILLNESS Brie Cadena is a 64 year old male who presents here today to re-establish care. Not seen for 3 years or so, in part due to insurance. Hypertension/ CAD. - Following with housekeeping and laundry team leader Dr Jackson in [place]. - Having difficulty finding a medication that he has a good response too and does not have side effects - Tried and failed medications - carvedilol (did not have good response, BP elevated), losartan and lisinopril (had good response, BP came down, endorsed GI side effects; cramps), metoprolol (resting heart rate too low), amlodipine - Automation Tester did suggest he try doxazosin, wanted to hold off until he could come in his appointment today. Health Maintenance: Due for LDL Cholesterol Due for Prostate Cancer Screening Discussion Due for Annual PCP Team Chronic Disease Visit Due for BP Controlled (<130/80) Due for Diabetes Screening Due for Influenza Vaccine (1) Due for Covid-19 Vaccine ( season) Due for Depression Screening Due for Anxiety Screening Due for HIV Screening Due for Shingrix Vaccine (1 of 2) Due for Pneumococcal Vaccine: 50+ (1 of 1- PCV) Due for Advance Directive Discussion Past, family and social history reviewed. PAST MEDICAL HISTORY PAST MEDICAL HISTORY Diagnosis Date Abdominal pain, unspecified site CAD (coronary artery disease) Hypertension KURTIS (obstructive sleep apnea) Pure hypercholesterolemia PAST SURGICAL HISTORY Procedure Laterality Date CABG (1) VEIN GRAFT AND ARTERIAL GRAFT 01/19/2011 BENNETT graft, saphenous vein graft COLONOSCOPY FLX DX W/COLLJ SPEC WHEN PFRMD 10/25/2015 Colonoscopy COLONOSCOPY FLX DX W/COLLJ SPEC WHEN PFRMD 01/14/2021 CORONARY STENT INITIAL 01/23/2011 Stent x 2DES CORONARY STENT INITIAL 11/26/2015 [facility], Ramus intermedius, Drug eluting stent. ESOPHAGOGASTRODUODENOSCOPY TRANSORAL DIAGNOSTIC 03/08/2012 EGD ESOPHAGOGASTRODUODENOSCOPY TRANSORAL DIAGNOSTIC 10/25/2015 EGD ESOPHAGOGASTRODUODENOSCOPY TRANSORAL DIAGNOSTIC 01/14/2021 HEART SURGERY HX PAST SURGICAL HISTORY OF 12/20/2010 double heart bypass PAST SURGICAL HISTORY OF catherizations x multiple times PAST SURGICAL HISTORY OF 11/18/2011 angioplasty VASCULAR SURGERY PROCEDURE ALLERGIES Amoxicillin and Protonix [Pantoprazole Sodium] FAMILY HISTORY Problem Relation Age of Onset Heart Mother other (ALS) Father Social History Tobacco Use Smoking status: Never Smokeless tobacco: Never Vaping Use Vaping status: Never Used Substance Use Topics Alcohol use: Yes Comment: rarely Drug use: No REVIEW OF SYSTEMS General: Feels well, no weight changes, fevers or chills. HEENT: No sinus congestion, earache, sore throat. Cardiac: No chest pain, palpitations Resp: No cough, wheeze, shortness of breath GI: No reflux symptoms, food intolerance, bowel changes. : No urinary frequency, dysuria. MS: No pain or joint complaints. PHYSICAL EXAMINATION BP 181/84 Pulse 99 Ht 182.9 cm (6') Wt 77 kg (169 lb 12.1 oz) SpO2 99% BMI 23.02 kg/m? General: Alert, well developed, well nourished, no distress, pleasant and cooperative. HEENT: No adenopathy or thyromegaly Heart: Regular rate and rhythm. Normal S1 and S2. No murmurs, rubs, or gallops. Lungs: Clear to auscultation bilaterally. No respiratory distress. No wheezes, rales, or rhonchi. Abdomen: Soft, non-tender, no distention Extremities: Feet/ankles without edema, posterior tibial pulses full and symmetrical Skin: No rashes or suspicious skin lesions noted. Musculoskeletal: Health Maintenance: Depression Screening Never done Anxiety Screening Never done HIV Screening Never done Shingrix Vaccine(1 of 2) Never done Pneumococcal Vaccine: 50+(1 of 1 - PCV) Never done LDL Cholesterol due on 02/21/2022 Prostate Cancer Screening Discussion due on 04/21/2022 BP Controlled (<130/80) due on 2023 Diabetes Screening due on 01/02/2024 Influenza Vaccine(1) due on 02/14/2024 Covid-19 Vaccine(3 - season) due on 02/14/2024 Advance Directive Discussion Never done Annual PCP Team Chronic Disease Visit due on 07/07/2025 Lipid Screening due on 08/29/2026 DTaP,Tdap,Td Vaccine(2 - Td or Tdap) due on 04/14/2027 Colorectal Cancer Screening due on 01/14/2031 RSV Vaccine(1 - 1-dose 75+ series) due on 2034 Hepatitis C Screening Completed Data Reviewed 10/22/2023 External Lab report reviewed in [facility] Most notable results: Chol - 243 (H) GAP- 4 (L) LDL - 174 (H) HCB - 16.9 (H) Baso% - 1.2 (H) Assessment/Plan (I1A.0) Resistant hypertension (primary encounter diagnosis) (T88.7XXA) Medication side effect Comment: Has tried and failed several hypertensive medications, see HPI. Has experienced GI s (more content not included)... [facility] 07-07-2024 History of Present illness Narrative CHIEF COMPLAINT Patient presents with: re-establish care HISTORY OF PRESENT ILLNESS Brie Cadena is a 64 year old male who presents here today to re-establish care. Not seen for 3 years or so, in part due to insurance. Hypertension/ CAD. - Following with housekeeping and laundry team leader Dr Jackson in [place]. - Having difficulty finding a medication that he has a good response too and does not have side effects - Tried and failed medications - carvedilol (did not have good response, BP elevated), losartan and lisinopril (had good response, BP came down, endorsed GI side effects; cramps), metoprolol (resting heart rate too low), amlodipine - Automation Tester did suggest he try doxazosin, wanted to hold off until he could come in his appointment today. Health Maintenance: Due for LDL Cholesterol Due for Prostate Cancer Screening Discussion Due for Annual PCP Team Chronic Disease Visit Due for BP Controlled (<130/80) Due for Diabetes Screening Due for Influenza Vaccine (1) Due for Covid-19 Vaccine (- season) Due for Depression Screening Due for Anxiety Screening Due for HIV Screening Due for Shingrix Vaccine (1 of 2) Due for Pneumococcal Vaccine: 50+ (1 of 1- PCV) Due for Advance Directive Discussion Past, family and social history reviewed. PAST MEDICAL HISTORY PAST MEDICAL HISTORY Diagnosis Date Abdominal pain, unspecified site CAD (coronary artery disease) Hypertension KURTIS (obstructive sleep apnea) Pure hypercholesterolemia PAST SURGICAL HISTORY Procedure Laterality Date CABG (1) VEIN GRAFT & ARTERIAL GRAFT 01/19/2011 BENNETT graft, saphenous vein graft COLONOSCOPY FLX DX W/COLLJ SPEC WHEN PFRMD 10/25/2015 Colonoscopy COLONOSCOPY FLX DX W/COLLJ SPEC WHEN PFRMD 01/14/2021 CORONARY STENT INITIAL 01/23/2011 Stent x 2DES CORONARY STENT INITIAL 11/26/2015 [facility], Ramus intermedius, Drug eluting stent. ESOPHAGOGASTRODUODENOSCOPY TRANSORAL DIAGNOSTIC 03/08/2012 EGD ESOPHAGOGASTRODUODENOSCOPY TRANSORAL DIAGNOSTIC 10/25/2015 EGD ESOPHAGOGASTRODUODENOSCOPY TRANSORAL DIAGNOSTIC 01/14/2021 HEART SURGERY HX PAST SURGICAL HISTORY OF 12/20/2010 double heart bypass PAST SURGICAL HISTORY OF catherizations x multiple times PAST SURGICAL HISTORY OF 11/18/2011 angioplasty VASCULAR SURGERY PROCEDURE ALLERGIES Amoxicillin and Protonix [Pantoprazole Sodium] FAMILY HISTORY Problem Relation Age of Onset Heart Mother other (ALS) Father Social History Tobacco Use Smoking status: Never Smokeless tobacco: Never Vaping Use Vaping status: Never Used Substance Use Topics Alcohol use: Yes Comment: rarely Drug use: No REVIEW OF SYSTEMS General: Feels well, no weight changes, fevers or chills. HEENT: No sinus congestion, earache, sore throat. Cardiac: No chest pain, palpitations Resp: No cough, wheeze, shortness of breath GI: No reflux symptoms, food intolerance, bowel changes. : No urinary frequency, dysuria. MS: No pain or joint complaints. PHYSICAL EXAMINATION BP 181/84 Pulse 99 Ht 182.9 cm (6') Wt 77 kg (169 lb 12.1 oz) SpO2 99% BMI 23.02 kg/m General: Alert, well developed, well nourished, no distress, pleasant and cooperative. HEENT: No adenopathy or thyromegaly Heart: Regular rate and rhythm. Normal S1 and S2. No murmurs, rubs, or gallops. Lungs: Clear to auscultation bilaterally. No respiratory distress. No wheezes, rales, or rhonchi. Abdomen: Soft, non-tender, no distention Extremities: Feet/ankles without edema, posterior tibial pulses full and symmetrical Skin: No rashes or suspicious skin lesions noted. Musculoskeletal: Health Maintenance: Depression Screening Never done Anxiety Screening Never done HIV Screening Never done Shingrix Vaccine(1 of 2) Never done Pneumococcal Vaccine: 50+(1 of 1 - PCV) Never done LDL Cholesterol due on 02/21/2022 Prostate Cancer Screening Discussion due on 04/21/2022 BP Controlled (<130/80) due on 2023 Diabetes Screening due on 01/02/2024 Influenza Vaccine(1) due on 02/14/2024 Covid-19 Vaccine( - 2023- season) due on 02/14/2024 Advance Directive Discussion Never done Annual PCP Team Chronic Disease Visit due on 07/07/2025 Lipid Screening due on 08/29/2026 DTaP,Tdap,Td Vaccine(2 - Td or Tdap) due on 04/14/2027 Colorectal Cancer Screening due on 01/14/2031 RSV Vaccine(1 - 1-dose 75+ series) due on 2034 Hepatitis C Screening Completed Data Reviewed 10/22/2023 External Lab report reviewed in [facility] Most notable results: Chol - 243 (H) GAP- 4 (L) LDL - 174 (H) HCB - 16.9 (H) Baso% - 1.2 (H) Assessment/Plan (I1A.0) Resistant hypertension (primary encounter diagnosis) (T88.7XXA) Medication side effect Comment: Has tried and failed several hypertensive medications, see HPI. Has experienced GI side effects to most. Due for routine labs Plan: COMPREHENSIVE METABOLIC PANEL, LIPID PANEL BASIC, PSA/PROSTATE SPECIFIC ANTIGEN SCREENING, TESTOSTERONE, FREE AND TOTAL, BY EQUILIBRIUM ULTRAFILTRATION MASS SPECTROMETRY, COMPLETE BLOOD COUNT Start Chlorthalidone 25 mg tablet Monitor BP at home, send results via [facility] within the next 1-2 weeks (I25.10) Coronary artery disease involving jena heart, unspecified vessel or lesion type, unspecified whether angina present (Z95.5) Presence of stent in coronary artery Comment: Well managed on statin therapy. Due for routine labs Plan: COMPREHENSIVE METABOLIC PANEL, LIPID PANEL BASIC, PSA/PROSTATE SPECIFIC ANTIGEN SCREENING, TESTOSTERONE, FREE AND TOTAL, BY EQUILIBRIUM ULTRAFILTRATION MASS SPECTROMETRY, COMPLETE BLOOD COUNT (Z12.5) Screening for prostate cancer Comment: Per health maintenance Plan: PSA/PROSTATE SPECIFIC ANTIGEN SCREENING Requested Prescriptions Signed Prescriptions Disp Refills chlorthalidone (HYGROTON) 25 mg tablet 30 tablet 5 Sig: Take 1 tablet by mouth once daily. RTO: 6 months Scribe Attestation: By signing my name below, Yolanda Velasquez, attest that this documentation has been prepared under the direction and in the presence of Angel Strong M.D. Electronically Signed: Vickie Rm. July 07, 2024 1:02 PM Provider Attestation: Jackie Velasquez MD, personally performed the services described in this documentation. All medical record entries made by the scribe were at my direction and in my telephonic presence. I have reviewed the chart and discharge instructions (if applicable), and agree that the record reflects my personal performance and is accurate and complete. Electronically Signed: Jackie Strong MD July 07, 2024 5:06 PM documented in this encounter [facility] 04-20-2024 Telephone encounter Note Received visit summary from [facility]. Placed in provider's inbox for review. Route to MA scanning [facility] 04-20-2024 Miscellaneous Notes Received visit summary from [facility]. Placed in provider's inbox for review. Route to MA scanning documented in this encounter [facility] 01-19-2024 Telephone encounter Note Received 01/19/2024 from [facility]. Placed in provider's inbox for review. Route to MA for scanning. [facility] 01-19-2024 Miscellaneous Notes Received 01/19/2024 from [facility]. Placed in provider's inbox for review. Route to MA for scanning. documented in this encounter [facility] 10-22-2023 Telephone encounter Note Received lab results from [facility]. Placed in provider's inbox for review. Route to MA scanning [facility] 10-22-2023 Miscellaneous Notes Received lab results from [facility]. Placed in provider's inbox for review. Route to MA scanning documented in this encounter [facility] 10-16-2023 Telephone encounter Note Received 10/16/2023 from [facility]. Placed in provider's inbox for review. Route to MA for scanning. [facility] 10-16-2023 Miscellaneous Notes Received 10/16/2023 from [facility]. Placed in provider's inbox for review. Route to MA for scanning. documented in this encounter [facility] 01-19-2023 Miscellaneous Notes Received 01/19/2023 from [facility]. Placed in provider's inbox for review. Route to [place] for scanning Low dose losartan 12.5 Lipid profile 1 week documented in this encounter [facility] 2022 History of Present illness Narrative CHIEF COMPLAINT Patient presents with: f/u medications HISTORY OF PRESENT ILLNESS Brie Cadena is a 62 year old male who presents here today for follow up management of medication. I last saw this patient on 01/01/2021. CAD / HTN Following with Dr Jackson every 6 months Started back on losartan 25 mg daily 2 weeks ago Tolerating the medication well, no SEs Checking his BPs away from this office BP was 129/80 this morning prior to meds Typically in low-160s following meds BP eventually comes back down after several hours Tried lisinopril in the past, stopped d/t SIMÓN cough Tried diuretic in the past, stopped d/t frequent urination Tried metoprolol in the past, stopped because it slows him down too much No longer on the statin for hyperlipidemia. Health Maintenance Due for HIV screening Due for PSA screening Due for LDL cholesterol Due for depression assessment Labs reviewed. Past medical history, appointments, medications, allergies reviewed. REVIEW OF SYSTEMS General: Feels well, no fever, no chills. HEENT: No sinus congestion, earache, sore throat. Cardiac: No chest pain, palpitations Resp: No cough, wheeze, shortness of breath. GI: No reflux symptoms, food intolerance, bowel changes. : No urinary frequency, dysuria. MS: No pain or joint complaints. PAST MEDICAL HISTORY PAST MEDICAL HISTORY Diagnosis Date Abdominal pain, unspecified site CAD (coronary artery disease) Hypertension KURTIS (obstructive sleep apnea) Pure hypercholesterolemia PHYSICAL EXAMINATION BP 171/72 Pulse 83 Ht 182.9 cm (6') Wt 73.9 kg (163 lb) SpO2 99% BMI 22.11 kg/m Repeat BP: 130/68 General: Alert, well developed, well nourished, no distress, pleasant and cooperative. Obese. Heart: Regular rate and rhythm. Normal S1 and S2. No murmurs, rubs, or gallops. Lungs: Clear to auscultation bilaterally. No respiratory distress. No wheezes, rales, or rhonchi. Abdomen: Soft, non-tender, no distention. Extremities: Feet/ankles without edema, posterior tibial pulses full and symmetrical. Data Reviewed Lipids 08/29/2021 total: 253 trigs: 91 ldl: 172 Assessment/Plan (I25.10) Coronary artery disease involving jena heart, unspecified vessel or lesion type, unspecified whether angina present (primary encounter diagnosis) (E78.00) Pure hypercholesterolemia (I10) Essential hypertension Comment: stable/ seeing crdiology BP high on arrval Plan: continue regimen. Bp on repeat OK (N52.9) ED (erectile dysfunction) of organic origin Comment: stable Plan: sildenafil (REVATIO) 20 mg tablet Requested Prescriptions Signed Prescriptions Disp Refills sildenafil (REVATIO) 20 mg tablet 90 tablet 11 Sig: Take 1-5 tablets by mouth 45-60 mg prior to anticipated intercourse. RTO: 1 year Scribe Attestation: By signing my name below, I, Deja Morales, attest that this documentation has been prepared under the direction and in the presence of Angel Strong M.D. Electronically Signed: Vickie Sharif. 2022 9:08 AM Provider Attestation: I, Jackie Strong MD, personally performed the services described in this documentation. All medical record entries made by the scribe were at my direction and in my presence. I have reviewed the chart and discharge instructions (if applicable) and agree that the record reflects my personal performance and is accurate and complete. Electronically Signed: Jackie Strong MD 2022 1:37 PM documented in this encounter [facility] 06-03-2022 Miscellaneous Notes Patient is scheduled for visit with Dr. Strong 06/05/22. 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 Strong at that visit. Thank you. Please call patient and assist in scheduling. It's been over one year since last visit, last seen 01/01/21. Pharmacy verified in Epic Patient has been identified by name and date of : Yes Patient aware RX will be sent to pharmacy. No need to notify patient. Pharmacy phones for refill(s): Requested Prescriptions Pending Prescriptions Disp Refills sildenafil (REVATIO) 20 mg tablet 50 tablet 11 Sig: Take 1-5 tablets by mouth 45-60 mg prior to anticipated intercourse. Date of last office visit : 01/01/2021 Date of next office visit : Visit date not found Last 2 Encounter Wt Readings: Date: Wt: 01/21/2021 73.8 kg (162 lb 9.6 oz) 01/03/2021 73.8 kg (162 lb 9.6 oz) Not applicable Please advise. Rose Starr LPN documented in this encounter [facility] 05-21-2022 Miscellaneous Notes Received 05/21/2022 from [facility]. Placed in provider's inbox for review. Route to DC for scanning. documented in this encounter [facility] 10-25-2015 History of Past i llness Narrative Problem Noted Date Resolved Date Encounter for screening for malignant neoplasm o f colon 10/25/2015 10/25/2015 Irritable bowel syndrome without diarrhea 201510/25/2015 Dysphagia, oropharyngeal 10/25/2015 016 documented as of this encounter (statuses as of 05/21/2022) [facility]05-[facility]2016 History of Past illness Narrative* Problem Noted Date Resolved Date Encounter for screening for malignant neoplasm o f colon 10/25/2015 10/25/2015 Irritable bowel syndrome without diarrhea 201510/25/2015 Dysphagia, oropharyngeal 10/25/2015 016 documented as of this encounter (statuses as of 06/03/2022) [facility] History of Past illness Narrative* Problem Noted Date Resolved Date Encounter for screening for malignant neoplasm o f colon 10/25/2015 10/25/2015 Irritable bowel syndrome without diarrhea 201510/25/2015 Dysphagia, oropharyngeal 10/25/2015 016 documented as of this encounter (statuses as of 06/06/2022) [facility] History of Past illness Narrative* Problem Noted Date Diagnosed Date Resolved Date Encounter for screening for malignant neoplasm of colon 10/25/2015 10/25/2015 Irritable bowel syndrome without diarrhea 10/25/2015 10/25/2015 Dysphagia, oropharyngeal 10/25/201505/2016 documented as of this encounter (statuses as of 01/19/2023) [facility]07-01-2011 Evaluation note* Diagnosis Onset Date Resolution Status Aortocoronary bypass status December, chronic Atherosclerosis of coronary artery bypass graft without angina pectoris chronic HLD (hyperlipidemia) chronic Presence of stent in coronary artery November, [facility] Work Phone: Evaluation note* Diagnosis 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 of organic origin [facility] Diagnosis Coronary artery disease involving jena heart, unspecified vessel or lesion type, unspecified whether angina present- Primary 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 of organic origin Pure hypercholesterolemia Essential hypertension Unspecified essential hypertension [facility] Diagnosis Resistant hypertension- Primary Medication side effect Unspecified adverse effect of unspecified drug, medicinal and biological substance Coronary artery disease involving jena heart, unspecified vessel or lesion type, unspecified whether angina present Presence of stent in coronary artery Postsurgical percutaneous transluminal coronary angioplasty status Screening for prostate cancer Special screening for malignant neoplasm of prostate [facility] Elevated PSA- Primary Elevated prostate specific antigen (PSA) [facility] Diagnosis Onset Date Resolution Status Admit Date Benign essential HTN chronic Augu st 2024 2:17pm [facility] Work Phone: Reason for referral (narrative)No reason for referral information [facility] Work Phone: Summary Purpose Family History No Family History Records Found Relationship Condition Age at Onset Recorded Date/T santos mother Coronary artery disease Unknown father Amyotrophic lateral sclerosis Unknown aunt Coronary artery disease Unknown Advance Directives No Advanced Directives Records Found Advance Directive Response Recorded Date/ Time Advance Directives No November 19 1:57pm Living Will No November 10, 2018 1 :32pm Power of Hazardous Waste Remover No November 10, 2018 1:32pm Advance Directive Response Recorded Date/ Time Advance Directives No November 19 1:57pm Chief Complaint and Reason for Visit Chief Complaint 6 M FU (with PFM) Reason for Visit Aortocoronary bypass status Atherosclerosis of coronary artery bypass graft without angina pectoris HLD (hyperlipidemia) Presence of stent in coronary artery Chief Complaint Admit Date BP ISSUES February 06, 2025 2: 17pm Reason for Visit Admit Date Benign essential HTN February 06, 2025 2 :17pm Reason for Referral Specialty Diagnoses / Procedures Referred By Contac t Referred To Contact Urology Diagnoses Elevated PSA Procedures CONSULT TO UROLOGY OFFICE/OUTPATIENT NEW HIGH MDM 60 MINUTES Jackie Strong MD [address] [place] [address] [place] [address] Referral ID Status Reason Start Date Expiration Date Visits Requested Visits Authorized [id number] Authorized PCP Requested Referral 07/12/2024 07/12/2025 1 1 Additional Source Comments (unrecognized sect ion and content) No Status Records FoundNo Status Records FoundNo Status Records FoundNo Status Records Found INFORMATION SOURCE (unrecogn ized section and content) DATE CREATED AUTHOR 05/16/2020 [facility] DATE CREATED AUTHOR AUTHOR'S ORGANIZ ATION 05/16/2020 [facility] DATE CREATED AUTHOR AUTHOR'S ORGANIZ ATION 02/08/2025 [facility] DATE CREATED AUTHOR AUTHOR'S ORGANIZ ATION 02/26/[address] [facility] Goals (unrecognized section and content) Goals may be documented in a n alternate sectionGoals may be documented in an alternate section Source Comments (unrecognize d section and content) In the event this informatio n is protected by the Federal Confidentiality of Alcohol and Drug Abuse Patient Records regulations: The Federal rules restrict any use of the information to criminally investigate or prosecute any alcohol or drug abuse patient.[facility] the event this information is protected by the Federal Confidentiality of Alcohol and Drug Abuse Patient Records regulations: The Federal rules restrict any use of the information to criminally investigate or prosecute any alcohol or drug abuse patient.[facility] the event this information is protected by the Federal Confidentiality of Alcohol and Drug Abuse Patient Records regulations: The Federal rules restrict any use of the information to criminally investigate or prosecute any alcohol or drug abuse patient.[facility] the event this information is protected by the Federal Confidentiality of Alcohol and Drug Abuse Patient Records regulations: The Federal rules restrict any use of the information to criminally investigate or prosecute any alcohol or drug abuse patient.[facility] the event this information is protected by the Federal Confidentiality of Alcohol and Drug Abuse Patient Records regulations: The Federal rules restrict any use of the information to criminally investigate or prosecute any alcohol or drug abuse patient.[facility] the event this information is protected by the Federal Confidentiality of Alcohol and Drug Abuse Patient Records regulations: The Federal rules restrict any use of the information to criminally investigate or prosecute any alcohol or drug abuse patient.[facility] the event this information is protected by the Federal Confidentiality of Alcohol and Drug Abuse Patient Records regulations: The Federal rules restrict any use of the information to criminally investigate or prosecute any alcohol or drug abuse patient.[facility] the event this information is protected by the Federal Confidentiality of Alcohol and Drug Abuse Patient Records regulations: The Federal rules restrict any use of the information to criminally investigate or prosecute any alcohol or drug abuse patient.[facility] the event this information is protected by the Federal Confidentiality of Alcohol and Drug Abuse Patient Records regulations: The Federal rules restrict any use of the information to criminally investigate or prosecute any alcohol or drug abuse patient.[facility] the event this information is protected by the Federal Confidentiality of Alcohol and Drug Abuse Patient Records regulations: The Federal rules restrict any use of the information to criminally investigate or prosecute any alcohol or drug abuse patient.[facility] the event this information is protected by the Federal Confidentiality of Alcohol and Drug Abuse Patient Records regulations: The Federal rules restrict any use of the information to criminally investigate or prosecute any alcohol or drug abuse patient.[facility] Reason for Visit (unrecogniz ed section and content) Reason Comments Received Outside Medical Records [facility] office summary 05/21/2022 Reason Onset Date Comments Refill Request 06/03/2022 Reason Comments f/u medications Specialty Diagnoses / Procedures Referred By Lucila t Referred To Contact [facility] Diagnoses follow up for medications Procedures 4C EST Self Famp [place]ae[place] [address] [place] [address] Referral ID Status Reason Start Date Expiration Date Visits Requested Visits Authorized [id number] Closed Financial Clearance Required - OON Payor OON Notification Letter Patient cleared - OON Required Payment Collected 2 09/03/2022 1 1 Reason Comments Received Outside Medical Records [facility] Office Visit summary 01/15/2023 CAD, PCI and CABG Reason Comments Received Outside Medical Records [facility] Visit summary 10/15/2022 Reason Comments outside labs [facility] 10/22/23 Reason Comments Received Outside Medical Records [facility] Visit summary 01/18/2024 f/u CAD, PCI, and CABG Reason Comments Received Outside Medical Records [facility] Reason Comments re-establish care Reason Comments Received Outside Medical Records [facility] Visit summary 02/06/2025 hypertension Care Teams (unrecognized sec tion and content) Development Technical Lead Relationship Specialty Start Date End Date Jackie Strong MD [address] [place] [address] PCP - General Family Medicine 01/30/11 Development Technical Lead Relationship Specialty Start Date End Date Jackie Strong MD [address] [place], [place] [id number] PCP - General Family Medicine 01/30/11 Development Technical Lead Relationship Specialty Start Date End Date Jackie Strong MD [address] [place], [place] [address] PCP - General Family Medicine 01/30/11 Development Technical Lead Relationship Specialty Start Date End Date Jackie Strong MD [address] [place] [address] PCP - General Family Medicine 01/30/11 Development Technical Lead Relationship Specialty Start Date End Date Jackie Strong MD [address] [place] [address] PCP - General Family Medicine 01/30/11 Development Technical Lead Relationship Specialty Start Date End Date Jackie Strong MD [address] [place] [address] PCP - General Family Medicine 01/30/11 Development Technical Lead Relationship Specialty Start Date End Date Jackie Strong MD [address] [place], [place] [id number] PCP - General Family Medicine 01/30/11 Sindhu Calixto, PART TIME.CASINO FLOOR SUPERVISOR [address] [facility] [address] [place], [place] [id number] [facility] 05/22/24 Development Technical Lead Relationship Specialty Start Date End Date Jackie Strong MD [address] [place], [place] [id number] PCP - General Family Medicine 01/30/11 Sindhu Calixto, PART TIME.CASINO FLOOR SUPERVISOR [address] [facility] [address] [place], [place] [id number] [employer] 05/22/24 Team Status: Active Member Role/Relationship Status Dates Dr. Angel Strong MD Family Provider Active Dr. Angel Strong MD Primary Care Provider Active Team Status: Inactive Member Role/Relationship Status Dates Dr. Angel Strong MD Primary Care Provider Active Start: February 06, 2025 End: February 06, 2025 Dr. Angel Strong MD Referring Provider Active Start: February 06, 2025 End: February 06, 2025 Dr. Caio Kelley MD Attending Provider Active Start: February 06, 2025 End: February 06, 2025 Development Technical Lead Relationship Specialty Start Date End Date Jackie Strong MD [address] [place], [place] [id number] PCP - General Family Medicine 01/30/11 Sindhu Calixto, PART TIME.CASINO FLOOR SUPERVISOR [address] [facility] [place] [address] [phone] (work) [facility] 05/22/24 FOR RECORDS PERTAINING TO PATIENTS WHO ARE OR HAVE BEEN ENROLLED IN A CHEMICAL DEPENDENCY/SUBSTANCEABUSE PROGRAM, SOME INFORMATION MAY BE OMITTED. This clinical summary was aggregated from multiple sources. Caution should be exercised in using it in the provision of clinical care. This summary normalizes information from multiple sources, and as a consequence, information in this document may materially change the coding, format and clinical context of patient data. In addition, data may be omitted in some cases. CLINICAL DECISIONS SHOULD BE BASED ON THE PRIMARY CLINICAL RECORDS. [facility]. provides no warranty or guarantee of the accuracy or completeness of information in this document.
--- NOTE | 2025-03-01 06:40 | ECHOD_ITS ---
Reason For Study Reason For Study: PALPITATIONS Procedure This was a 2D Doppler, Color Flow transthoracic echocardiogram. Exam performed in department. Left Ventricle Normal LV size. Left ventricular systolic function is normal. The left ventricular ejection fraction is 60 %. No regional wall motion abnormalities noted. Right Ventricle Normal RV size. Normal systolic function. Atria Normal left atrium. Normal right atrium. Mitral Valve Normal mitral valve. Tricuspid Valve Normal tricuspid valve. Aortic Valve Trisinus/trileaflet aortic valve. Pulmonic Valve Normal pulmonic valve. Great Vessels Normal aortic root. The pulmonary artery is normal size. Inferior vena cava collapse with respiration. Pericardium/Pleural No pericardial effusion. MMode/2D Measurements & Calculations LVIDd: 4.7 cm IVSd: 1.1 cm Ao root diam: 3.2 cm LVIDs: 3.1 cm LVPWd: 1.0 cm RVDd: 3.4 cm FS: 34.2 % LAV(MOD-bp): 59.3 ml LVAd ap4: 27.1 cm2 LVAd ap2: 28.6 cm2 LAV(MOD-bp) Indexed: 29.2 ml/m2 LVLd ap4: 7.2 cm LVLd ap2: 7.6 cm LAV(MOD-sp2): 60.8 ml EDV(MOD-sp4): 82.9 ml EDV(MOD-sp2): 95.0 ml LAV(MOD-sp4): 54.4 ml EDV(sp4-el): 86.0 ml EDV(sp2-el): 92.0 ml LVAs ap4: 12.9 cm2 LVAs ap2: 14.8 cm2 LVLs ap4: 6.1 cm LVLs ap2: 6.4 cm ESV(MOD-sp4): 23.4 ml ESV(MOD-sp2): 31.1 ml ESV(sp4-el): 23.1 ml ESV(sp2-el): 28.9 ml EF(MOD-sp4): 71.8 % EF(MOD-sp2): 67.3 % EF(sp4-el): 73.2 % SV(MOD-sp4): 59.5 ml SV(MOD-sp2): 64.0 ml SV(sp4-el): 62.9 ml SI(MOD-sp4): 29.3 ml/m2 SI(MOD-sp2): 31.5 ml/m2 LA A4 area: 19.5 cm2 LA dimension(2D): 3.6 cm RA A4 area: 18.4 cm2 TAPSE: 1.7 cm Time Measurements MV dec time: 0.23 sec Doppler Measurements & Calculations MV E max darien: 74.3 cm/sec Lat Peak E' Darien: 12.3 cm/sec Med Peak E' Darien: 7.3 cm/sec MV A max darien: 53.9 cm/sec E/E' lat: 6.1 E/E' med: 10.2 MV E/A: 1.4 MV V2 max: 81.3 cm/sec MV P1/2t max darien: 82.2 cm/sec Ao V2 max: 114.4 cm/sec MV max P.6 mmHg MV P1/2t: 74.1 msec Ao max P.2 mmHg MV V2 mean: 36.2 cm/sec Ao V2 mean: 72.5 cm/sec MV mean P.67 mmHg MV dec slope: 325.1 cm/sec2 Ao mean P.5 mmHg MV V2 VTI: 26.3 cm MVA(P1/2t): 3.0 cm2 Ao V2 VTI: 26.5 cm AV (velocity ratio): 0.73 LV V1 max: 88.1 cm/sec PA V2 max: 102.9 cm/sec TR max darien: 236.4 cm/sec LV V1 max P.1 mmHg PA V2 mean: 67.7 cm/sec TR max P.4 mmHg LV V1 mean P.5 mmHg PA V2 VTI: 23.0 cm LV V1 mean: 57.1 cm/sec LV V1 VTI: 19.4 cm ECHO/Echo Complete Interpretation Summary Normal LV size. Left ventricular systolic function is normal. The left ventricular ejection fraction is 60 %. Structurally normal valves. Ordering Physician: Caio Kelley Referring Physician: Angel Barros Performed By: Karishma Moody RDCS, RVT
== END | disposition home or self-care (01) ==
LOC: CVS 06:35
PROVIDERS: PCP Family Medicine; Referring Provider Internal Medicine Cardiovascular Disease; Visit Provider Internal Medicine Cardiovascular Disease
DX: R00.2 Palpitations (principal); I25.10 Atherosclerotic heart disease of native coronary artery without angina pectoris
CPT/HCPCS: 93306